=== PATIENT | male | born 1965 | race Caucasian/White ===

== ENCOUNTER 2016-08-02 10:42 | Inpatient (IN) ==
--- NOTE | 2016-08-01 16:26 | Discharge Summary ---
<Faith Ruiz - Last Filed: 08/01/16 16:20> Date of Encounter: 08/01/16 - Discharge Diagnosis (1) Infection of prosthetic left knee joint Priority: Primary Status: Acute Qualifiers: Encounter type: initial encounter Qualified Code(s): T84.54XA - Infection and inflammatory reaction due to internal left knee prosthesis, initial encounter (2) Coronary artery disease Priority: Secondary Status: Chronic Qualifiers: Coronary Disease-Associated Artery/Lesion type: unspecified vessel or lesion type [place] vs. transplanted heart: unspecified whether [place] or transplanted heart Associated angina: angina presence unspecified Qualified Code(s): I25.10 - Atherosclerotic heart disease of [place] coronary artery without angina pectoris (3) Tobacco use Priority: Secondary Status: Chronic (4) COPD (chronic obstructive pulmonary disease) Priority: Secondary Status: Chronic Qualifiers: COPD type: unspecified COPD (5) Atrial fib/flutter, transient Priority: Secondary Status: Chronic - Discharge Medications Prescriptions: Vancomycin HCl in Dextrose 5 % [Vancomycin 1.5 Gram/250 ml-D5w] 1.5 gm IV Q12H 42 Days Home Medications: Clopidogrel [Plavix] 75 mg PO DAILY 11/13/14 [History] Atorvastatin [Lipitor] 40 mg PO HS #90 tablet 11/16/14 [Rx] Cyclobenzaprine [Flexeril] 10 mg PO BID PRN 12/19/14 [History] FLUoxetine HCl [Prozac] 20 mg PO DAILY 12/19/14 [History] Folic Acid 1 mg PO DAILY 12/19/14 [History] Metoprolol [Lopressor] 50 mg PO BID 12/19/14 [History] Quetiapine Fumarate [Seroquel] 300 mg PO HS 12/19/14 [History] Gabapentin [Neurontin] 800 mg PO TID 03/15/15 [History] lamoTRIgine [Lamictal] 200 mg PO HS tablet 04/21/15 [Rx] [place] Carbonate 300 mg PO HS 06/15/15 [History] DULoxetine [Cymbalta] 60 mg PO DAILY 08/08/15 [History] Furosemide [Lasix] 20 mg PO DAILY 08/23/15 [History] Potassium Chloride [K-Tab ER] 20 meq PO DAILY 08/23/15 [History] Tiotropium [place] [Spiriva] 18 mcg PO DAILY 08/23/15 [History] ALPRAZolam [Xanax 0.5 MG Tablet] 0.5 mg PO Q6HR PRN 10/25/15 [History] Albuterol Sulfate [Ventolin Hfa] 2 puff IH Q4H PRN 04/23/16 [History] Docusate Sodium [Move It Along] 100 mg PO BID PRN 04/23/16 [History] Fluticasone/Vilanterol [Breo Ellipta 100-25 Mcg INH] 1 each IH HS 04/23/16 [ History] Meloxicam 15 mg PO DAILY 04/23/16 [History] Aspirin Enteric Coated [Aspirin EC] 325 mg PO DAILY #21 tablet. 08/01/16 [Rx] OxyCODONE Immed Rel [Roxicodone 5 MG] 2 mg PO Q6HR PRN #40 tablet 08/01/16 [Rx] Acetaminophen [Tylenol] 500 mg PO Q6HR PRN 08/02/16 [History] Aspirin [Lo-Dose Aspirin EC] 81 mg PO DAILY 08/02/16 [History] Benzonatate [Tessalon] 100 mg PO TID PRN 08/02/16 [History] FentaNYL PATCH [Duragesic] 25 mcg TD Q72H 08/02/16 [History] Guaifenesin [Guaifenesin ER] 600 mg PO Q12H PRN 08/02/16 [History] MOM Conc [MILK OF MAGNESIA conc] 30 ml PO DAILY PRN 08/02/16 [History] Menthol [Biofreeze] 1 appl TP BID PRN MDD apply to shoulders 08/02/16 [History] Nitroglycerin [Nitrostat] 0.4 mg SL Q5M PRN 08/02/16 [History] OxyCODONE/APAP 5/325 [Percocet 5/325 MG] 1 each PO Q6HR PRN 08/02/16 [History] Vancomycin HCl in Dextrose 5 % [Vancomycin 1.5 Gram/250 ml-D5w] 1.5 gm IV Q12H 42 Days 08/04/16 [Rx] Allergies/Adverse Reactions: Allergies simvastatin Allergy (Verified 08/02/16 12:16) See Comments chest pain Primary care physician: Sandro Ying MD - Patient Status Disposition: Transfer Inpatient Rehab Fac Condition: Good - Discharge Instructions Follow Up With: Sandro Ying MD [Primary Care Provider] - - Hospital Course Hospital course: Mr. Timmons is a 50 year old male - Time Spent with Patient Total time spent providing and/or coordinating discharge services: <Albert Thapa Rafael - Last Filed: 08/04/16 07:51> Date of Encounter: 08/04/16 Time of Encounter: 07:49 - Discharge Diagnosis (1) Coronary artery disease Priority: Secondary Status: Chronic Qualifiers: Coronary Disease-Associated Artery/Lesion type: unspecified vessel or lesion type [place] vs. transplanted heart: unspecified whether [place] or transplanted heart Associated angina: angina presence unspecified Qualified Code(s): I25.10 - Atherosclerotic heart disease of [place] coronary artery without angina pectoris (2) Tobacco use Priority: Secondary Status: Chronic (3) COPD (chronic obstructive pulmonary disease) Priority: Secondary Status: Chronic Qualifiers: COPD type: unspecified COPD Qualified Code(s): J44.9 - Chronic obstructive pulmonary disease, unspecified (4) Atrial fib/flutter, transient Priority: Secondary Status: Chronic (5) Infection of prosthetic left knee joint Priority: Primary Status: Acute Qualifiers: Encounter type: subsequent encounter Qualified Code(s): T84.54XD - Infection and inflammatory reaction due to internal left knee prosthesis, subsequent encounter (6) Congestive heart failure of unknown etiology Priority: Secondary Status: Chronic Primary care physician: Sandro Ying MD - Patient Status Functional capacity at discharge: uses cane/walker Overall status at discharge: patient is progressing back to baseline - Hospital Course Hospital course: Mr. Timmons is a 50 year old male The patient had an uneventful postoperative course. They received antibiotics and physical therapy and were discharged in stable condition. There will follow -up in the office in 2 weeks. Cultures negative to date and will continue on IV antibiotics for 6 weeks. Patient had a PICC line placed aspirin DVT prophylaxis. - Time Spent with Patient Total time spent providing and/or coordinating discharge services:
[2016-08-02] MEDS ORDERED: Albuterol 2.5 MG/3 ML NEBULIZER IH ONE (10:57)
[2016-08-02] MEDS ORDERED: Vancomycin 1,250 MG in D5% in Water 250 ML IVPB ONE (10:57)
[2016-08-02] MEDS ORDERED: Ringers Solution, Lactated 1,000 ML IVC SCH ×2 (11:00→16:39)
--- NOTE | 2016-08-02 11:02 | Anesthesia Evaluation PreOp ---
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 THR, Left TKR) Alcohol Use: none Drug use: none Medications and Allergies Clopidogrel [Plavix] 75 mg PO DAILY 11/13/14 [History] Atorvastatin [Lipitor] 40 mg PO HS #90 tablet 11/16/14 [Rx] Cyclobenzaprine [Flexeril] 10 mg PO BID 12/19/14 [History] FLUoxetine HCl [Prozac] 20 mg PO DAILY 12/19/14 [History] Folic Acid 1 mg PO DAILY 12/19/14 [History] Metoprolol [Lopressor] 50 mg PO BID 12/19/14 [History] Quetiapine Fumarate [Seroquel] 300 mg PO HS 12/19/14 [History] Gabapentin [Neurontin] 800 mg PO TID 03/15/15 [History] lamoTRIgine [Lamictal] 200 mg PO HS tablet 04/21/15 [Rx] [place] Carbonate 300 mg PO HS 06/15/15 [History] DULoxetine [Cymbalta] 60 mg PO DAILY 08/08/15 [History] Furosemide [Lasix] 20 mg PO DAILY 08/23/15 [History] Potassium Chloride [K-Tab ER] 20 meq PO DAILY 08/23/15 [History] Tiotropium [place] [Spiriva] 18 mcg PO DAILY 08/23/15 [History] ALPRAZolam [Xanax 0.5 MG Tablet] 0.5 mg PO Q6HR PRN 10/25/15 [History] Albuterol Sulfate [Ventolin Hfa] 1 puff IH Q4H PRN 04/23/16 [History] Clopidogrel [Plavix] 75 mg PO DAILY 04/23/16 [History] Docusate Sodium [Move It Along] 100 mg PO BID 04/23/16 [History] Fluticasone/Vilanterol [Breo Ellipta 100-25 Mcg INH] 1 each IH DAILY 04/23/16 [ History] Meloxicam 15 mg PO DAILY 04/23/16 [History] Aspirin Enteric Coated [Aspirin EC] 325 mg PO DAILY #21 tablet. 08/01/16 [Rx] OxyCODONE Immed Rel [Roxicodone 5 MG] 2 mg PO Q6HR PRN #40 tablet 08/01/16 [Rx] Allergies simvastatin Allergy (Verified 06/27/16 14:18) See Comments chest pain - Meds/Allergy Pre-op Review Medications Reviewed: Yes Allergies Reviewed: Yes Beta Blockers on Current Med List: Yes If Beta Blockers taken, Date/Time (Last Dose taken): Held for low BP and HR Anesthesia Results - Labs Laboratory Tests 07/28/16 07/28/16 07/28/16 14:47 14:47 14:47 WBC 13.3 H Hgb 13.6 Hct 41.1 Plt Count 238 INR 1.2 Sodium 138 Potassium 4.6 H Chloride 103 Carbon Dioxide 27 BUN 17 Creatinine 0.93 ECHO 11/14/14 EF-50% Mild LV dysfunction Mod Pulm HTN No sig. Valvular dx - Imaging EKG: image reviewed (SR) Anesthesia Exam Height: 5'7'' Weight: 200# NPO (# of Hours): > 8 hrs Pain Scale: 0 Pain Scale Used: Numeric (1 - 10) - HEENT Pupil (Motor): Pupils equal, EOMI Mallampati: III Teeth: Edentulous Denture Type: Upper: Complete, Lower: Complete Oral Opening: Greater than 3 - EMERGENCY VETERINARIAN LOC: Oriented EMERGENCY VETERINARIAN Motor: Normal RUE, Normal LUE, Normal RLE, Normal LLE, Normal Face EMERGENCY VETERINARIAN Sensory: Normal: RUE, LUE, RLE, LLE, Face - Cardiac Rhythm: Regular Murmur: None JVD: No Carotid Bruit: No - Pulmonary Breath Sounds: bilateral Clear Respiratory Effort: Symmetrical Anesthesia Assess/Plan ASA Score: 3 Modified Marcela Scale for Level of Consciousness: Cooperative, oriented, and tranquil Anesthetic Plan: General, Regional Autologous Blood: Yes Monitoring Plan: Standard Monitors Recovery Plan: PACU
--- NOTE | 2016-08-02 11:27 | History & Physical Report ---
Date of Encounter: 08/02/16 Time of Encounter: 11:27 24 Hour HP Update - Instructions Instructions: If the History and Physical is less than 30 days old and was completed prior to A.M. admission and or procedure and has NOT been updated on calendar day of procedure please complete this update prior to performing procedure. - Update Patient reports changes in Medical Condition: No Changes in examination, assessment, or condition: No Changes in Medication: No Preop tests/diagnostics Reviewed: Yes Surgery Remains Indicated: Yes Consent for Planned Operative Procedure(s) Verified: Yes - Pre-Operative Checklist Preoperative Checklist Indicated: No Prophylactic Antibiotic Ordered: Yes Is VTE Prophylaxis Indicated?: Yes
[2016-08-02] MEDS ORDERED: *HR* Midazolam HCl 2 MG/2 ML VIAL ONE (12:42)
[2016-08-02] MEDS ORDERED: *HR* FentaNYL (PF) 100 MCG/2 ML VIAL ONE (12:42)
[2016-08-02] MEDS ORDERED: *HR* Propofol 200 MG/20 ML VIAL IVP ONE (12:43)
[2016-08-02] MEDS ORDERED: Lidocaine -MPF 2% 2 ML VIAL ONE (12:44)
[2016-08-02] MEDS ORDERED: Bupivacaine/Clonidine Syringe 1 EACH SYRINGE ONE (12:44)
[2016-08-02] MEDS ORDERED: ROPIVACAINE HCL/PF 0.5% 30 ML VIAL ONE (12:45)
[2016-08-02] MEDS ORDERED: *HR* Succinylcholine 200 MG/10 ML VIAL IVP ONE (12:45)
--- NOTE | 2016-08-02 13:12 | Anesthesia Procedures ---
Date of Encounter: 08/02/16 Time of Encounter: 13:09 Procedures: Anesthesia - Nerve Block Procedure Date: 08/02/16 Time: 13:09 Allergies/Adv Reactions: simastatin Pre-op Diagnosis: L knee arthritis Surgical Procedure: L TKA Checklist: Correct Patient Identifier Correct side: Left Blood Thinner: No Monitor Applied: EKG, BP, Pulse Oximetry Supplemental Oxygen via Nasal Cannula (L/min): 3 Sedation: Versed (mg): 2 Indication: Post Op Analgesia Pre-op Neuro Deficits: No Block Type: Femoral, Other (IPAK) Catheter placed: No Sterile Technique: Yes Ultrasound used: Yes Anatomy identified: Yes Visual spread of Local: Yes Neuro Stimulation: Yes Nerve Stimulator Range: 0.2 - 0.4 mA Blood on Needle Aspiration: No Smooth Injection of Local: Yes Pain with Injection of Local: No Prep: Chlorhexadine Needle: 22 x 50 mm Stimuplex (fem), 21 x 100 mm Stimuplex (IPAK) Local: 0.25% Bupivicaine w/Clonidine 20 mcg/cc (20 cc IPAK), Ropivacaine (30cc FEM) Volume (cc): 30+20 Number of Attempts: 1 Complications: None/effective block Vitals: 113/64 60 18 98% Comments: aseptic, tolerated well
[2016-08-02] MEDS ORDERED: Lidocaine -MPF 4% 5 ML AMPUL ONE (13:13)
[2016-08-02] MEDS ORDERED: EPHEDrine 50 MG/ML VIAL ONE (13:50)
[2016-08-02] MEDS ORDERED: Dexamethasone 4 MG/ML VIAL ONE (13:53)
[2016-08-02] MEDS ORDERED: Ondansetron 4 MG/2 ML VIAL ONE (13:53)
[2016-08-02] MEDS ORDERED: *HR* HYDROmorphone (PF) 1 MG/ML SYRINGE IVP PRN (14:24)
[2016-08-02] MEDS ORDERED: *HR* Promethazine 25 MG/ML VIAL IVP PRN (14:24)
--- NOTE | 2016-08-02 14:47 | Orthopedic Operative Note ---
Date of procedure: 08/02/16 Pre-op diagnosis: Infected left total knee Post-op diagnosis: same Procedure: Procedure: Left knee removal total knee, removal of hardware tibia and femur, placement of articulating spacer. Estimated blood loss: 800 cc Hardware: Arthrex 4 femur 18 PS Nandini Exam under anesthesia: 40 degree flexion contracture and flexion to 90 degrees swelling no erythema well-healed incision Procedural Notes: No gross pus within the joint purulent material found medial aspect outside the capsule. Grossly loose femur. Operative procedure: The patient was brought to the operating room and placed on the operating room table. The operative extremity was prepped and draped in sterile surgical fashion. The patient received IV antibiotics prior to skin incision. A standard midline incision was made centered over the patella through the old incision, superiorly and elliptical portion was used to remove with the incision had spread well-healing the incision was well-healed. The incision was made through the skin and subcutaneous tissue. A medial parapatellar tendon approach was performed. Care was taken to preserve tissue along the medial aspect of the patella. And to protect the patella tendon. The deep MCL was released off the medial tibia. The infra patella fat pad was excised. Fluid within the joint appeared to be consistent with normal joint fluid and Cultures were obtained, patient purulent material extracapsular cultures were obtained. An extensive synovectomy was performed. The knee was brought into flexion the Nandini was removed. Femoral component was grossly loose and removed with very little effort. Attention was then turned to the tibial component. The tibial component was well fixed was removed with an oscillating saw and osteotomes without significant bone loss. Patient's patella was transected below the patellar component. Nandini Lugs were removed with the drill. The patient came to full extension but had bone bone contact at this point. The femur was recut in 6 degrees of valgus. And prepared for a 4 femur. The tibia was recut at 4 mm below the previous cut line. This was both done intramedullary. From the femur with a interference screw was removed from the tibia a staple was removed. Following these recuts a 4 femur fit with an 18 Nandini to full extension. The knee sat for 2 minutes with a Betadine saline solution. It was irrigated out with 2 L of pulse irrigation. The articulating spaces were cemented in place after the wound was irrigated with bactisure. The knee was held in full extension while the cement hardened. The extensor mechanism was closed with a running #2 PDS suture. The deep tissue was irrigated and closed deep with #1 PDS suture superficially with 0 PDS suture. The skin was closed with kodak. The patient was placed in a sterile dressing and postoperative brace. The patient was extubated and transferred to recovery room in stable condition. Anesthesia: GETA Surgeon: Albert Thapa [employer] Chief Scientist: Faith Ruiz Condition: stable Disposition: PACU
--- NOTE | 2016-08-02 15:55 | Anesthesia Evaluation Post Op ---
Date of Encounter: 08/02/16 Time of Encounter: 15:54 - Vital Signs Vital Signs: Selected Entries 08/02/16 15:23 08/02/16 15:43 Temperature 97.0 F L Pulse Rate 76 Respiratory Rate 18 Blood Pressure 100/57 O2 Sat by Pulse Oximetry 95 Oxygen Flow Rate (LPM) 2 - Lungs Lungs: Clear Ascult./Percussion - Airway Airway: Non-obstructed - Cardiovascular Regular Rate - Mental Status Mental Status: Alert & Oriented, Answers Appropriately - Pain Pain Scale: 5 Pain Scale used: Numeric (1 - 10) - Nausea Vomiting Nausea Vomiting: Not Present - Hydration Hydration: Ice chips, Has not voided - Discharge PostOp Status: Transfer Patient to floor
[2016-08-02 15:59] LABS: Hematocrit 36.9 % (37.5-50.1); Hemoglobin 12.2 g/dL (12.9-16.9)
[2016-08-02] MEDS ORDERED: *HR* FentaNYL PATCH 25 MCG PATCH TD SCH (16:39)
[2016-08-02] MEDS ORDERED: Ondansetron 4 MG/2 ML VIAL IVP PRN (16:39)
[2016-08-02] MEDS ORDERED: Temazepam 15 MG CAPSULE PO PRN (16:39)
[2016-08-02] MEDS ORDERED: Nitroglycerin 0.4 MG TAB.SUBL SL PRN (16:39)
[2016-08-02] MEDS ORDERED: Sennosides 8.6 MG TABLET PO PRN (16:39)
[2016-08-02] MEDS ORDERED: Benzonatate 100 MG CAPSULE PO PRN (16:39)
[2016-08-02] MEDS ORDERED: *HR* OxyCODONE Immed Rel 5 MG TABLET PO PRN (16:39)
[2016-08-02] MEDS ORDERED: Naloxone 0.4 MG/ML INJ IVP PRN (16:39)
[2016-08-02] MEDS ORDERED: MOM Conc 10 ML UD.LIQ PO PRN ×2 (16:39)
[2016-08-02] MEDS ORDERED: ALPRAZolam 0.5 MG TABLET PO PRN (16:39)
[2016-08-02] MEDS: *HR* Enoxaparin 30 MG/0.3 ML SYRINGE SQ SCH (16:55)
[2016-08-02] MEDS: *HR* HYDROmorphone (PF) 1 MG/ML SYRINGE IVP PRN (16:55)
[2016-08-02] MEDS: Gabapentin 400 MG CAPSULE PO SCH ×2 (17:58→20:51)
[2016-08-02] MEDS ORDERED: *HR* Enoxaparin 30 MG/0.3 ML SYRINGE SQ SCH (18:00)
[2016-08-02] MEDS: *HR* OxyCODONE Immed Rel 5 MG TABLET PO PRN (19:45)
[2016-08-02] MEDS: Lithium Carbonate 300 MG CAPSULE PO SCH (20:51)
[2016-08-02] MEDS: lamoTRIgine 100 MG TABLET PO SCH (20:51)
[2016-08-02] MEDS: (Fluticasone/Vilanterol [Breo Ellipta 100-25 Mcg Inh]) IH SCH (23:30)
[2016-08-03] MEDS: Vancomycin 1,500 MG in D5% in Water 250 ML IVPB SCH ×3 (01:17→23:53)
[2016-08-03] MEDS: *HR* OxyCODONE Immed Rel 5 MG TABLET PO PRN ×6 (01:20→23:50)
[2016-08-03] MEDS ORDERED: Vancomycin 1,000 MG VIAL IVPB SCH (01:30)
[2016-08-03 05:51] LABS: Hematocrit 31.5 % (37.5-50.1)
[2016-08-03 05:52] LABS: Hemoglobin 10.3 g/dL (12.9-16.9)
[2016-08-03] MEDS: *HR* Enoxaparin 30 MG/0.3 ML SYRINGE SQ SCH ×2 (06:03→17:08)
[2016-08-03 06:09] LABS: BUN/Creatinine Ratio 18 (6-26); Blood Urea Nitrogen 19 mg/dL (8-26); Calcium 8.9 mg/dL (8.6-10.8); Carbon Dioxide 27 mEq/L (19-29); Chloride 102 mEq/L (98-109); Glucose 123 mg/dL (70-99); Osmolality,Calculated 286 (280-300); Potassium 4.9 mEq/L (3.5-4.5); Sodium 136 mEq/L (136-145); eGFR For African Americans > 60 (> 60); eGFR For Non-African Americans > 60 (> 60)
[2016-08-03] MEDS ORDERED: Lidocaine -MPF 1% 5 ML AMPUL INFILT ONE (06:26)
--- NOTE | 2016-08-03 08:10 | Orthopedics Progress Note ---
Date of Encounter: 08/03/16 Time of Encounter: 08:10 - Assessment and Plan (1) Coronary artery disease Current Visit: No Status: Chronic Qualifiers: Coronary Disease-Associated Artery/Lesion type: unspecified vessel or lesion type [place] vs. transplanted heart: unspecified whether [place] or transplanted heart Associated angina: angina presence unspecified Qualified Code(s): I25.10 - Atherosclerotic heart disease of [place] coronary artery without angina pectoris (2) Tobacco use Current Visit: No Status: Chronic (3) COPD (chronic obstructive pulmonary disease) Current Visit: No Status: Chronic Qualifiers: COPD type: unspecified COPD Qualified Code(s): J44.9 - Chronic obstructive pulmonary disease, unspecified (4) Atrial fib/flutter, transient Current Visit: No Status: Chronic (5) Infection of prosthetic left knee joint Current Visit: Yes Status: Acute Qualifiers: Encounter type: subsequent encounter Qualified Code(s): T84.54XD - Infection and inflammatory reaction due to internal left knee prosthesis, subsequent encounter Subjective Interval history: Patient was seen this morning doing well without complaints. Afebrile vital signs stable. Operative extremity: Neurovascularly intact Dressing clean dry and intact Calves nontender Assessment and plan: Continue with postoperative care Hematocrit 31 Gram stain negative for bacteria cultures pending blood, PICC line required Objective Vital signs: Vital Signs Temp Pulse Resp BP Pulse Ox 08/03/16 06:31 98.7 F 83 20 114/66 93 08/03/16 05:20 98.4 F 77 19 96/58 96 08/03/16 00:47 98 F 83 20 102/64 93 08/02/16 19:48 97.8 F 81 16 106/70 95 08/02/16 19:30 97.8 F 81 16 106/70 95 08/02/16 18:30 97.8 F 77 18 109/69 95 08/02/16 17:20 97.7 F 78 16 101/53 96 08/02/16 17:07 95 08/02/16 17:06 88 08/02/16 16:34 95 08/02/16 16:25 97.8 F 80 12 100/66 95 08/02/16 16:03 97.9 F 75 16 96/60 93 08/02/16 15:53 97.9 F 74 16 95/65 94 08/02/16 15:43 76 18 100/57 95 05/31/17 15:33 71 18 102/60 98 08/02/16 15:23 97.0 F L 82 20 103/65 99 08/02/16 13:00 61 18 106/67 99 08/02/16 12:45 61 18 113/66 99 08/02/16 10:59 97.8 F 60 18 84/42 95 Intake and Output 08/02/16 08/03/16 08/03/16 23:59 07:59 15:59 Intake Total 400 / 400 450 / 450 Output Total 450 / 450 Balance 400 / 400 0 / 0 Intake: IV Fluids 250 / 250 250 / 250 Vancocin 1,500 MG In 250 / 250 250 / 250 Dextrose 5% 250 ML @ 166. 67 mls/hr IVPB Q12H [facility] Rx#:[id number] Oral 150 / 150 200 / 200 Output: Urine 450 / 450 - Labs CBC & BMP: 08/03/16 05:14 08/03/16 05:14 Labs: Abnormal lab results Hgb 10.3 g/dL (12.9-16.9) L D 08/03/16 05:14 Hct 31.5 % (37.5-50.1) L 08/03/16 05:14 Potassium 4.9 mEq/L (3.5-4.5) H 08/03/16 05:14 Glucose 123 mg/dL (70-99) H 08/03/16 05:14 - VTE Documentation of Mechanical Device: Venous foot pump, device Consult Discharge Plan - Plan Referrals: Sandro Ying MD [Primary Care Provider] -
[2016-08-03] MEDS: Tiotropium 18 MCG inhalation IH SCH (08:13)
[2016-08-03] MEDS: Folic Acid 1 MG TABLET PO SCH (08:18)
[2016-08-03] MEDS: Gabapentin 400 MG CAPSULE PO SCH ×3 (08:18→21:37)
[2016-08-03] MEDS: FLUoxetine 20 MG CAPSULE PO SCH (08:18)
[2016-08-03] MEDS: Furosemide 20 MG TABLET PO SCH (08:18)
[2016-08-03] MEDS: Aspirin Enteric Coated 81 MG Tablet PO SCH (08:19)
[2016-08-03] MEDS: *HR* HYDROmorphone (PF) 1 MG/ML SYRINGE IVP PRN ×3 (11:17→21:41)
[2016-08-03] MEDS: lamoTRIgine 100 MG TABLET PO SCH (21:37)
[2016-08-03] MEDS: Lithium Carbonate 300 MG CAPSULE PO SCH (21:38)
[2016-08-03] MEDS: (Fluticasone/Vilanterol [Breo Ellipta 100-25 Mcg Inh]) IH SCH (21:38)
[2016-08-04] MEDS: *HR* HYDROmorphone (PF) 1 MG/ML SYRINGE IVP PRN ×2 (01:26→09:06)
--- NOTE | 2016-08-04 06:29 | Orthopedics Progress Note ---
Date of Encounter: 08/04/16 Time of Encounter: 06:28 - Assessment and Plan (1) Coronary artery disease Current Visit: No Status: Chronic Qualifiers: Coronary Disease-Associated Artery/Lesion type: unspecified vessel or lesion type [place] vs. transplanted heart: unspecified whether [place] or transplanted heart Associated angina: angina presence unspecified Qualified Code(s): I25.10 - Atherosclerotic heart disease of [place] coronary artery without angina pectoris (2) Tobacco use Current Visit: No Status: Chronic (3) COPD (chronic obstructive pulmonary disease) Current Visit: No Status: Chronic Qualifiers: COPD type: unspecified COPD Qualified Code(s): J44.9 - Chronic obstructive pulmonary disease, unspecified (4) Atrial fib/flutter, transient Current Visit: No Status: Chronic (5) Infection of prosthetic left knee joint Current Visit: Yes Status: Acute Qualifiers: Encounter type: subsequent encounter Qualified Code(s): T84.54XD - Infection and inflammatory reaction due to internal left knee prosthesis, subsequent encounter (6) Congestive heart failure of unknown etiology Current Visit: Yes Status: Chronic Subjective Interval history: Patient was seen this morning doing well without complaints. Afebrile vital signs stable. Operative extremity: Neurovascularly intact Dressing clean dry and intact Calves nontender Assessment and plan: Continue with postoperative care Cultures negative discharged today IV antibiotics. Objective Vital signs: Vital Signs Temp Pulse Resp BP Pulse Ox 08/04/16 03:59 98.1 F 108 17 125/69 93 08/03/16 23:34 98.4 F 99 17 148/73 94 08/03/16 17:53 99.0 F 98 20 142/75 93 08/03/16 14:14 99.2 F 92 20 120/68 93 08/03/16 11:12 98.8 F 81 20 137/84 93 08/03/16 08:14 18 93 08/03/16 06:31 98.7 F 83 20 114/66 93 Intake and Output 08/03/16 08/03/16 08/04/16 15:59 23:59 07:59 Intake Total 120 / 120 1260 / 1260 250 / 250 Output Total 500 / 500 350 / 350 Balance -380 / -380 910 / 910 250 / 250 Intake: IV Fluids 250 / 250 250 / 250 Vancocin 1,500 MG In 250 / 250 250 / 250 Dextrose 5% 250 ML @ 166. 67 mls/hr IVPB Q12H [facility] Rx#:[id number] Oral 120 / 120 1010 / 1010 Output: Urine 500 / 500 350 / 350 Other: Meal Breakfast Dinner Percent of Meal Consumed 50% 10% - Labs CBC & BMP: 08/03/16 05:14 08/03/16 05:14 Labs: Abnormal lab results Hgb 10.3 g/dL (12.9-16.9) L D 08/03/16 05:14 Hct 31.5 % (37.5-50.1) L 08/03/16 05:14 Potassium 4.9 mEq/L (3.5-4.5) H 08/03/16 05:14 Glucose 123 mg/dL (70-99) H 08/03/16 05:14 - VTE Documentation of Mechanical Device: Venous foot pump, device Consult Discharge Plan - Plan Referrals: Sandro Ying MD [Primary Care Provider] -
[2016-08-04] MEDS: *HR* Enoxaparin 30 MG/0.3 ML SYRINGE SQ SCH (07:09)
[2016-08-04] MEDS: *HR* OxyCODONE Immed Rel 5 MG TABLET PO PRN ×3 (07:09→15:04)
[2016-08-04 08:04] LABS: BUN/Creatinine Ratio 16 (6-26); Blood Urea Nitrogen 15 mg/dL (8-26); Calcium 8.8 mg/dL (8.6-10.8); Carbon Dioxide 26 mEq/L (19-29); Chloride 102 mEq/L (98-109); Glucose 118 mg/dL (70-99); Osmolality,Calculated 284 (280-300); Sodium 136 mEq/L (136-145); eGFR For African Americans > 60 (> 60); eGFR For Non-African Americans > 60 (> 60)
[2016-08-04 08:05] LABS: Potassium 3.4 mEq/L (3.5-4.5)
[2016-08-04 08:07] LABS: Hemoglobin 8.3 g/dL (12.9-16.9)
[2016-08-04] MEDS: Tiotropium 18 MCG inhalation IH SCH (08:41)
[2016-08-04] MEDS: Folic Acid 1 MG TABLET PO SCH (09:02)
[2016-08-04] MEDS: Aspirin Enteric Coated 81 MG Tablet PO SCH (09:02)
[2016-08-04] MEDS: Gabapentin 400 MG CAPSULE PO SCH ×2 (09:02→15:05)
[2016-08-04] MEDS: Furosemide 20 MG TABLET PO SCH (09:03)
[2016-08-04] MEDS: FLUoxetine 20 MG CAPSULE PO SCH (09:03)
[2016-08-04 11:10] VITALS: BP 112/61
[2016-08-04] MEDS: Vancomycin 1,500 MG in D5% in Water 250 ML IVPB SCH (12:47)
[2016-08-04] MEDS ORDERED: Aminoglycoside Consult 1 EACH MC ONE (15:05)
== END 2016-08-04 15:06 | DRG 302 ==
LOC: SAMDAY 10:42 → 3NENU 16:23
PROVIDERS: ADMIT Orthopaedic Surgery; ATTEND Orthopaedic Surgery

== ENCOUNTER 2016-09-25 13:57 | Inpatient (IN) ==
--- NOTE | 2016-09-24 22:40 | Discharge Summary ---
<Faith Ruiz - Last Filed: 09/24/16 22:38> Date of Encounter: 09/24/16 - Discharge Diagnosis (1) Status post revision of total replacement of left knee Priority: Primary Status: Acute (2) History of infection of total joint prosthesis of knee Priority: Primary Status: Acute (3) Coronary artery disease Priority: Secondary Status: Chronic Qualifiers: Coronary Disease-Associated Artery/Lesion type: [place] artery [place] vs. transplanted heart: [place] heart Associated angina: without angina Qualified Code(s): I25.10 - Atherosclerotic heart disease of [place] coronary artery without angina pectoris (4) Tobacco use Priority: Secondary Status: Chronic (5) COPD (chronic obstructive pulmonary disease) Priority: Primary Status: Chronic Qualifiers: COPD type: chronic bronchitis (6) Atrial fib/flutter, transient Priority: Secondary Status: Chronic (7) Congestive heart failure Priority: Secondary Status: Chronic Qualifiers: Congestive heart failure type: unspecified congestive heart failure type Congestive heart failure chronicity: chronic Qualified Code(s): I50.9 - Heart failure, unspecified (8) Chronic pain Priority: Secondary Status: Acute Qualifiers: Chronic pain type: other chronic pain Qualified Code(s): G89.29 - Other chronic pain (9) Obesity Priority: Secondary Status: Acute Qualifiers: Obesity type: due to excess calories Obesity classification: unspecified obesity classification Serious obesity comorbidity presence: without serious comorbidity Qualified Code(s): E66.09 - Other obesity due to excess calories - Discharge Medications Home Medications: Clopidogrel [Plavix] 75 mg PO DAILY 11/13/14 [History] Atorvastatin [Lipitor] 40 mg PO HS #90 tablet 11/16/14 [Rx] Cyclobenzaprine [Flexeril] 10 mg PO BID PRN 12/19/14 [History] FLUoxetine HCl [Prozac] 20 mg PO DAILY 12/19/14 [History] Folic Acid 1 mg PO DAILY 12/19/14 [History] Metoprolol [Lopressor] 50 mg PO BID 12/19/14 [History] Quetiapine Fumarate [Seroquel] 300 mg PO HS 12/19/14 [History] Gabapentin [Neurontin] 800 mg PO TID 03/15/15 [History] lamoTRIgine [Lamictal] 200 mg PO HS tablet 04/21/15 [Rx] [place] Carbonate 300 mg PO HS 06/15/15 [History] DULoxetine [Cymbalta] 60 mg PO DAILY 08/08/15 [History] Furosemide [Lasix] 20 mg PO DAILY 08/23/15 [History] Potassium Chloride [K-Tab ER] 20 meq PO DAILY 08/23/15 [History] Tiotropium [place] [Spiriva] 18 mcg PO DAILY 08/23/15 [History] ALPRAZolam [Xanax 0.5 MG Tablet] 0.5 mg PO Q6HR PRN 10/25/15 [History] Albuterol Sulfate [Ventolin Hfa] 2 puff IH Q4H PRN 04/23/16 [History] Docusate Sodium [Move It Along] 100 mg PO BID PRN 04/23/16 [History] Fluticasone/Vilanterol [Breo Ellipta 100-25 Mcg INH] 1 each IH HS 04/23/16 [ History] Benzonatate [Tessalon] 100 mg PO TID PRN 08/02/16 [History] FentaNYL PATCH [Duragesic] 25 mcg TD Q72H 08/02/16 [History] Guaifenesin [Guaifenesin ER] 600 mg PO Q12H PRN 08/02/16 [History] MOM Conc [MILK OF MAGNES[place] conc] 30 ml PO DAILY PRN 08/02/16 [History] Menthol [Biofreeze] 1 appl TP BID PRN MDD apply to shoulders 08/02/16 [History] Nitroglycerin [Nitrostat] 0.4 mg SL Q5M PRN 08/02/16 [History] Aspirin Enteric Coated [Aspirin EC] 325 mg PO DAILY #21 tablet. 09/24/16 [Rx] OxyCODONE/APAP 5/325 [Percocet 5/325 MG] 1 - 2 each PO Q6HR PRN #40 09/24/16 [ Rx] Acetaminophen [Tylenol] 500 mg PO Q6HR PRN 09/25/16 [History] Albuterol Sulfate [Ventolin Hfa] 2 puff IH Q4H PRN 09/25/16 [History] Aspirin 325 mg PO DAILY 09/25/16 [History] Fluticasone/Vilanterol [Breo Ellipta 100-25 Mcg INH] 1 each IH HS 09/25/16 [ History] Lactobacillus Acidophilus [Acidophilus] 1 each PO BID 09/25/16 [History] Oxycodone HCl [Oxaydo] 10 mg PO Q6H PRN 09/25/16 [History] Allergies/Adverse Reactions: Allergies simvastatin Adverse Reaction (Verified 09/25/16 14:50) See Comments chest pain Primary care physician: Sandro Ying MD - Patient Status Disposition: Transfer Inpatient Rehab Fac Condition: Good - Discharge Instructions Follow Up With: Sandro Ying MD [Primary Care Provider] - - Hospital Course Hospital course: Mr. Timmons is a 51 year old male - Time Spent with Patient Total time spent providing and/or coordinating discharge services: <Albert Thapa Rafael - Last Filed: 09/27/16 08:21> Date of Encounter: 09/27/16 Time of Encounter: 08:20 - Discharge Diagnosis (1) Coronary artery disease Priority: Secondary Status: Chronic Qualifiers: Coronary Disease-Associated Artery/Lesion type: [place] artery [place] vs. 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 Qualifiers: Encounter type: subsequent encounter Qualified Code(s): T84.54XD - Infection and inflammatory reaction due to internal left knee prosthesis, subsequent encounter (7) Congestive heart failure Priority: Secondary Status: Chronic Qualifiers: Congestive heart failure type: unspecified congestive heart failure type Congestive heart failure chronicity: chronic Qualified Code(s): I50.9 - Heart failure, unspecified (8) Status post revision of total replacement of left knee Priority: Primary Status: Acute (9) History of infection of total joint prosthesis of knee Priority: Primary Status: Acute (10) Chronic pain Priority: Secondary Status: Acute Qualifiers: Chronic pain type: other chronic pain Qualified Code(s): G89.29 - Other chronic pain (11) Obesity Priority: Secondary Status: Acute Qualifiers: Obesity type: due to excess calories Obesity classification: unspecified obesity classification Serious obesity comorbidity presence: without serious comorbidity Qualified Code(s): E66.09 - Other obesity due to excess calories (12) Acute blood loss anemia Priority: Primary Status: Acute Primary care physician: Sandro Ying MD - Patient Status Functional capacity at discharge: uses cane/walker Overall status at discharge: patient is progressing back to baseline - Hospital Course Hospital course: Mr. Timmons is a 51 year old male Hematocrit 24 transfused 2 units before discharge. Patient with revision left total knee. Cultures negative to date. Received antibiotics and physical therapy no knee motion until incision healed. - Time Spent with Patient Total time spent providing and/or coordinating discharge services:
--- NOTE | 2016-09-24 22:45 | Physician Discharge Referral ---
ExtendedCare Referral Info Transfer To: ECF Provider in Charge after Transfer: PCP Institutional Level of Care: Skilled - Diagnosis (1) Status post revision of total replacement of left knee Priority: Primary Status: Acute (2) History of infection of total joint prosthesis of knee Priority: Primary Status: Acute (3) Coronary artery disease Priority: Secondary Status: Chronic (4) Tobacco use Priority: Secondary Status: Chronic (5) COPD (chronic obstructive pulmonary disease) Priority: Secondary Status: Chronic (6) Atrial fib/flutter, transient Priority: Secondary Status: Chronic (7) Congestive heart failure Priority: Secondary Status: Chronic (8) Chronic pain Priority: Secondary Status: Acute (9) Obesity Priority: Secondary Status: Acute Expected Duration of Placement: Long-term Prognosis: Good Aware of Diagnosis: Patient Aware of Prognosis: Patient - Transfer Medications Home Medications: Clopidogrel [Plavix] 75 mg PO DAILY 11/13/14 [History] Atorvastatin [Lipitor] 40 mg PO HS #90 tablet 11/16/14 [Rx] Cyclobenzaprine [Flexeril] 10 mg PO BID PRN 12/19/14 [History] FLUoxetine HCl [Prozac] 20 mg PO DAILY 12/19/14 [History] Folic Acid 1 mg PO DAILY 12/19/14 [History] Metoprolol [Lopressor] 50 mg PO BID 12/19/14 [History] Quetiapine Fumarate [Seroquel] 300 mg PO HS 12/19/14 [History] Gabapentin [Neurontin] 800 mg PO TID 03/15/15 [History] lamoTRIgine [Lamictal] 200 mg PO HS tablet 04/21/15 [Rx] [place] Carbonate 300 mg PO HS 06/15/15 [History] DULoxetine [Cymbalta] 60 mg PO DAILY 08/08/15 [History] Furosemide [Lasix] 20 mg PO DAILY 08/23/15 [History] Potassium Chloride [K-Tab ER] 20 meq PO DAILY 08/23/15 [History] Tiotropium [place] [Spiriva] 18 mcg PO DAILY 08/23/15 [History] ALPRAZolam [Xanax 0.5 MG Tablet] 0.5 mg PO Q6HR PRN 10/25/15 [History] Albuterol Sulfate [Ventolin Hfa] 2 puff IH Q4H PRN 04/23/16 [History] Docusate Sodium [Move It Along] 100 mg PO BID PRN 04/23/16 [History] Fluticasone/Vilanterol [Breo Ellipta 100-25 Mcg INH] 1 each IH HS 04/23/16 [ History] Benzonatate [Tessalon] 100 mg PO TID PRN 08/02/16 [History] FentaNYL PATCH [Duragesic] 25 mcg TD Q72H 08/02/16 [History] Guaifenesin [Guaifenesin ER] 600 mg PO Q12H PRN 08/02/16 [History] MOM Conc [MILK OF [place]ES[place] conc] 30 ml PO DAILY PRN 08/02/16 [History] Menthol [Biofreeze] 1 appl TP BID PRN MDD apply to shoulders 08/02/16 [History] Nitroglycerin [Nitrostat] 0.4 mg SL Q5M PRN 08/02/16 [History] Aspirin Enteric Coated [Aspirin EC] 325 mg PO DAILY #21 tablet. 09/24/16 [Rx] OxyCODONE/APAP 5/325 [Percocet 5/325 MG] 1 - 2 each PO Q6HR PRN #40 09/24/16 [ Rx] Acetaminophen [Tylenol] 500 mg PO Q6HR PRN 09/25/16 [History] Albuterol Sulfate [Ventolin Hfa] 2 puff IH Q4H PRN 09/25/16 [History] Aspirin 325 mg PO DAILY 09/25/16 [History] Fluticasone/Vilanterol [Breo Ellipta 100-25 Mcg INH] 1 each IH HS 09/25/16 [ History] Lactobacillus Acidophilus [Acidophilus] 1 each PO BID 09/25/16 [History] Oxycodone HCl [Oxaydo] 10 mg PO Q6H PRN 09/25/16 [History] Allergies/Adverse Reactions: Allergies simvastatin Adverse Reaction (Verified 09/25/16 14:50) See Comments chest pain - Respiratory Orders None Smoking Cessation: Smoking cessation has been advised. For more information, call the [place] Tobacco Quit Line at 4-008-VAVZ-NOW. - Ancillary Orders May use pressure relief devices daily prn, May go on HE w/family/respon republican w /meds at nurse discretion PRN, May consult with Dentist, Forestry [employer], Drier Operator Helper PRN - Mobility Orders Chair, Ambulate - Rehabiliation Orders Rehab Potential: Good Rehab Orders: ROM Exercises, Evaluation for Physical Therapy, Evaluation for Occupational Therapy - Treatments Skin tear care topically daily PRN per policy List/Other: Opsite dressing, leave intact until first post-operative visit. If dressing becomes >50% saturated, contact office, remove dressing and place appropriate dressing in its place. Keep GILES wrap in place. Do not allow for dressing to get wet. Shoaib in place, plan to remove at post-operative day #14-16. Total Joint Precautions x 6 weeks Apply cold therapy wrap 3-6x/day for 20 minutes at a time. Encourage ambulation throughout the day Use Incentive spirometer 10x/hour. Elevate affected extremity above heart as tolerated. Brace: Wear TSCOPE brace x 6 weeks. PT: No knee ROM, WBAT - Diet Orders Regular CERTIFICATION: I certify that the transfer of the above named patient to an Extended Care Facility is necessary for the continuing treatment of the diagnosis listed. The above information is true and accurate reflection of patient's current condition. Confidential - Redisclosure prohibited without a patient's written consent.
[2016-09-25] MEDS ORDERED: Vancomycin 1,250 MG in D5% in Water 250 ML IVPB ONE (14:40)
[2016-09-25] MEDS ORDERED: Albuterol 2.5 MG/3 ML NEBULIZER IH ONE ×2 (14:40→21:09)
[2016-09-25] MEDS ORDERED: Ringers Solution, Lactated 1,000 ML IVC SCH ×2 (14:45→21:59)
--- NOTE | 2016-09-25 14:54 | History & Physical Report ---
Date of Encounter: 09/25/16 Time of Encounter: 14:53 24 Hour HP Update - Instructions Instructions: If the History and Physical is less than 30 days old and was completed prior to A.M. admission and or procedure and has NOT been updated on calendar day of procedure please complete this update prior to performing procedure. - Update Patient reports changes in Medical Condition: No Changes in examination, assessment, or condition: No Changes in Medication: No Preop tests/diagnostics Reviewed: Yes Surgery Remains Indicated: Yes Consent for Planned Operative Procedure(s) Verified: Yes - Pre-Operative Checklist Preoperative Checklist Indicated: No Prophylactic Antibiotic Ordered: Yes Is VTE Prophylaxis Indicated?: Yes
[2016-09-25] MEDS ORDERED: Gabapentin 300 MG CAPSULE PO ONE (15:08)
[2016-09-25] MEDS ORDERED: Famotidine 20 MG/2 ML VIAL IVP ONE (15:08)
--- NOTE | 2016-09-25 15:18 | Anesthesia Evaluation PreOp ---
Date of Encounter: 09/25/16 Time of Encounter: 15:15 - Past History Planned Operation: Left Knee Revision Cardiac History: [place] (2011), HTN, Hyperlipidemia, Arrhythmia (Hx AFib), Cardiac Stent (Stent X1 2011, took Plavix today), Other (CAD) Pulmonary History: COPD DIGITAL ACCOUNT EXECUTIVE History: Denies Any Significant HX Other Medical History: Denies Any Significant HX Anesthesia History: No Prior Anesthetic Complications Alcohol Use: none Drug use: none Medications and Allergies Clopidogrel [Plavix] 75 mg PO DAILY 11/13/14 [History] Atorvastatin [Lipitor] 40 mg PO HS #90 tablet 11/16/14 [Rx] Cyclobenzaprine [Flexeril] 10 mg PO BID PRN 12/19/14 [History] FLUoxetine HCl [Prozac] 20 mg PO DAILY 12/19/14 [History] Folic Acid 1 mg PO DAILY 12/19/14 [History] Metoprolol [Lopressor] 50 mg PO BID 12/19/14 [History] Quetiapine Fumarate [Seroquel] 300 mg PO HS 12/19/14 [History] Gabapentin [Neurontin] 800 mg PO TID 03/15/15 [History] lamoTRIgine [Lamictal] 200 mg PO HS tablet 04/21/15 [Rx] [place] Carbonate 300 mg PO HS 06/15/15 [History] DULoxetine [Cymbalta] 60 mg PO DAILY 08/08/15 [History] Furosemide [Lasix] 20 mg PO DAILY 08/23/15 [History] Potassium Chloride [K-Tab ER] 20 meq PO DAILY 08/23/15 [History] Tiotropium [place] [Spiriva] 18 mcg PO DAILY 08/23/15 [History] ALPRAZolam [Xanax 0.5 MG Tablet] 0.5 mg PO Q6HR PRN 10/25/15 [History] Albuterol Sulfate [Ventolin Hfa] 2 puff IH Q4H PRN 04/23/16 [History] Docusate Sodium [Move It Along] 100 mg PO BID PRN 04/23/16 [History] Fluticasone/Vilanterol [Breo Ellipta 100-25 Mcg INH] 1 each IH HS 04/23/16 [ History] Benzonatate [Tessalon] 100 mg PO TID PRN 08/02/16 [History] FentaNYL PATCH [Duragesic] 25 mcg TD Q72H 08/02/16 [History] Guaifenesin [Guaifenesin ER] 600 mg PO Q12H PRN 08/02/16 [History] MOM Conc [MILK OF [place] conc] 30 ml PO DAILY PRN 08/02/16 [History] Menthol [Biofreeze] 1 appl TP BID PRN MDD apply to shoulders 08/02/16 [History] Nitroglycerin [Nitrostat] 0.4 mg SL Q5M PRN 08/02/16 [History] Aspirin [place] Coated [Aspirin EC] 325 mg PO DAILY #21 tablet. 09/24/16 [Rx] OxyCODONE/APAP 5/325 [Percocet 5/325 MG] 1 - 2 each PO Q6HR PRN #40 09/24/16 [ Rx] Acetaminophen [Tylenol] 500 mg PO Q6HR PRN 09/25/16 [History] Albuterol Sulfate [Ventolin Hfa] 2 puff IH Q4H PRN 09/25/16 [History] Aspirin 325 mg PO DAILY 09/25/16 [History] Fluticasone/Vilanterol [Breo Ellipta 100-25 Mcg INH] 1 each IH HS 09/25/16 [ History] Lactobacillus Acidophilus [Acidophilus] 1 each PO BID 09/25/16 [History] Oxycodone HCl [Oxaydo] 10 mg PO Q6H PRN 09/25/16 [History] Allergies simvastatin Adverse Reaction (Verified 09/25/16 14:50) See Comments chest pain - Meds/Allergy Pre-op Review Medications Reviewed: Yes Allergies Reviewed: Yes Beta Blockers on Current Med List: Yes (Took Metoprolol today 0800) Anesthesia Results - Labs Laboratory Tests 09/19/16 09/19/16 12:27 12:27 WBC 10.9 Hgb 11.6 L Hct 37.3 L Plt Count 230 Sodium 138 Potassium 4.3 BUN 15 Creatinine 1.06 - Imaging EKG: report reviewed (SR) Anesthesia Exam O2 Sat Height 1.7 m Height 1.7 m Weight 89.811 kg Weight 89.811 kg O2 Sat by Pulse Oximetry 96 Vital Signs Temp Pulse Resp BP Pulse Ox 97.5 F L 63 16 107/63 96 09/25/16 15:12 09/25/16 15:12 09/25/16 15:12 09/25/16 15:12 09/25/16 15:12 Height: 5'7 Weight: 197 lbs NPO (# of Hours): MN Pain Scale: 0 - HEENT Pupil (Motor): Pupils equal, EOMI Mallampati: III Teeth: Edentulous Oral Opening: Less than or equal to 3 - DIGITAL ACCOUNT EXECUTIVE LOC: Oriented DIGITAL ACCOUNT EXECUTIVE Motor: Normal RUE, Normal LUE, Normal RLE, Normal Face, Deficit LLE (slight weakness foot) DIGITAL ACCOUNT EXECUTIVE Sensory: Normal: RUE, LUE, RLE, LLE, Face - Cardiac Rhythm: Regular Murmur: None JVD: No Carotid Bruit: No - Pulmonary Breath Sounds: bilateral Clear Respiratory Effort: Symmetrical Anesthesia Assess/Plan ASA Score: 3 (CAD HTN) Anesthetic Plan: General, Regional Monitoring Plan: Standard Monitors Recovery Plan: PACU (Discussed GA and RA, agrees to proceed)
[2016-09-25] MEDS ORDERED: ROPIVACAINE HCL/PF 0.5% 30 ML VIAL ONE (15:36)
[2016-09-25] MEDS ORDERED: *HR* FentaNYL (PF) 100 MCG/2 ML VIAL ONE ×3 (15:36→19:46)
[2016-09-25] MEDS ORDERED: *HR* Midazolam HCl 5 MG/5 ML VIAL IVP ONE (15:36)
--- NOTE | 2016-09-25 16:48 | Anesthesia Procedures ---
Date of Encounter: 09/25/16 Time of Encounter: 16:35 Procedures: Anesthesia - Nerve Block Procedure Date: 09/25/16 Time: 16:35 Allergies/Adv Reactions: Allergies Allergy/AdvReac Type Severity Reaction Status Date / Time simvastatin AdvReac See Verified 09/25/16 14:50 Comments Pre-op Diagnosis: Left Knee Infection Surgical Procedure: Left Total Knee Revision Checklist: Correct Patient Identifier, Correct procedure, History checked Correct side: Left Blood Thinner: No Monitor Applied: EKG, BP, Pulse Oximetry Supplemental Oxygen via Nasal Cannula (L/min): 2 Sedation: Versed (mg): 2 Indication: Post Op Analgesia Pre-op Neuro Deficits: No Block Type: Femoral Catheter placed: No Sterile Technique: Yes Ultrasound used: Yes Anatomy identified: Yes Visual spread of Local: Yes Neuro Stimulation: Yes Nerve Stimulator Range: 0.2 - 0.4 mA Blood on Needle Aspiration: No Smooth Injection of Local: Yes Pain with Injection of Local: No Prep: Chlorhexadine Needle: 22 x 50 mm Stimuplex Local: Ropivacaine (0.5% ) Volume (cc): 30 Number of Attempts: 1 Complications: None/effective block Vitals: Last Vital Signs Temp 97.5 F L 09/25/16 15:12 Pulse 64 09/25/16 16:44 Resp 16 09/25/16 16:44 BP 116/75 09/25/16 16:44 Pulse Ox 98 09/25/16 16:44 VSS throughout procedure. Comments: Patient tolerated well. No immediate complications.
[2016-09-25] MEDS ORDERED: *HR* Propofol 200 MG/20 ML VIAL IVP ONE ×2 (17:34→20:01)
[2016-09-25] MEDS ORDERED: *HR* Enoxaparin 30 MG/0.3 ML SYRINGE SQ SCH (18:00)
[2016-09-25] MEDS ORDERED: *HR* HYDROmorphone 2 MG/ML SYRINGE ONE (20:14)
--- NOTE | 2016-09-25 20:23 | Orthopedic Operative Note ---
Date of procedure: 09/25/16 Pre-op diagnosis: History of infected left total knee status post resection arthroplasty Post-op diagnosis: same (With articulating spacer.) Procedure: Procedure: Left revision total knee patellectomy Estimated blood loss: 500 Hardware: Metal and polyethylene replacement. Biomet SSK femur: 60, 16 x 1 20 Tibia: 67, 14 x 80 Constrained Nandini: 16 Exam Under anesthesia: Well healed incision no drainage or erythema. Procedural Notes: No purulent material no sign of infection Operative procedure: The patient was brought to the operating room and placed on the operating room table. After general anesthesia was administered the operative knee was examined. Findings were noted in the exam under anesthesia. The operative extremity was prepped and draped in sterile surgical fashion. The patient received IV antibiotics prior to skin incision. A standard elliptical midline incision was made centered over the patella around the old incision. The incision was made through the skin and subcutaneous tissue. A medial parapatellar tendon approach was performed. Care was taken to preserve tissue along the medial aspect of the patella. The patella was of small caliber and was excised subperiosteally. And to protect the patella tendon. The deep MCL was released off the medial tibia. The infra patella fat pad was excised. Fluid was encountered this was normal joint fluid, Cultures were obtained . The knee was brought into flexion the poly-was removed. As well as the femoral component. The tibia was sized to a 67, it was reamed up to a 14 x 80. Trial had good fit and fixation. The femur was sized to a 60, was reamed up to a 16 x 120 The finishing guide was seated and the box cut was made. The trial had good fit and fixation. Both trial components were seated and the 16 constrained Nandini was seated and secured. The knee had full flexion and full extension with no instability. The trial components were removed. The knee sat for 2 minutes with a Betadine saline solution. It was irrigated out with 2 L of pulse irrigation. The components were assembled on the back table, the tibia cemented first followed by the femur. The 16 constrained liner was seated and secure. The knee was brought to full extension while the cement hardened. After the cement hardened the knee was irrigated out again bactisure. The knee was closed by the PA. The extensor mechanism was closed with a running #2 PDS suture. The deep tissue was irrigated and closed deep with #1 PDS suture superficially with 0 PDS suture. The skin was closed with skin kodak. The patient was placed in a sterile dressing and postoperative brace. They were extubated and transferred to recovery room in stable condition. Anesthesia: BRADLEY Surgeon: Albert Thapa Filament Welder: Faith Ruiz Condition: stable Disposition: PACU
[2016-09-25] MEDS ORDERED: *HR* HYDROmorphone (PF) 1 MG/ML SYRINGE IVP PRN (21:11)
[2016-09-25] MEDS ORDERED: Albuterol 2.5 MG/3 ML NEBULIZER ONE (21:14)
--- NOTE | 2016-09-25 21:15 | Anesthesia Evaluation Post Op ---
Date of Encounter: 09/25/16 Time of Encounter: 21:25 - Vital Signs Vital Signs: Vital Signs/O2 Sat/Glucose, Most Current Temp Pulse Resp BP Pulse Ox 09/25/16 21:10 82 16 123/60 95 09/25/16 21:00 84 16 115/80 94 09/25/16 20:50 97.0 F L 90 16 126/74 100 09/25/16 17:36 67 16 124/74 96 - Lungs Lungs: Clear Ascult./Percussion - Airway Airway: Non-obstructed - Cardiovascular Regular Rate - Mental Status Mental Status: Alert & Oriented, Answers Appropriately - Nausea Vomiting Nausea Vomiting: Not Present - Hydration Hydration: Ice chips - Discharge PostOp Status: Transfer Patient to floor
[2016-09-25 21:30] LABS: Hemoglobin 11.5 g/dL (12.9-16.9)
[2016-09-25] MEDS ORDERED: *HR* OxyCODONE Immed Rel 5 MG TABLET PO PRN (21:59)
[2016-09-25] MEDS ORDERED: Sennosides 8.6 MG TABLET PO PRN (21:59)
[2016-09-25] MEDS ORDERED: Methyl Salicylate/Menthol 28 GM TUBE TP PRN (21:59)
[2016-09-25] MEDS ORDERED: Benzonatate 100 MG CAPSULE PO PRN (21:59)
[2016-09-25] MEDS ORDERED: Nitroglycerin 0.4 MG TAB.SUBL SL PRN (21:59)
[2016-09-25] MEDS ORDERED: ALPRAZolam 0.5 MG TABLET PO PRN (21:59)
[2016-09-25] MEDS ORDERED: Naloxone 0.4 MG/ML INJ IVP PRN (21:59)
[2016-09-25] MEDS ORDERED: NON-FORMULARY MEDICATION 1 EACH EACH (Fluticasone/Vilanterol [Breo Ellipta 100-25 Mcg Inh] IH SCH (21:59)
[2016-09-25] MEDS ORDERED: Ondansetron 4 MG/2 ML VIAL IVP PRN (21:59)
[2016-09-25] MEDS ORDERED: *HR* FentaNYL PATCH 25 MCG PATCH TD SCH (21:59)
[2016-09-25] MEDS ORDERED: MOM Conc 10 ML UD.LIQ PO PRN ×2 (21:59)
[2016-09-25] MEDS ORDERED: Temazepam 15 MG CAPSULE PO PRN (21:59)
[2016-09-25] MEDS: Lithium Carbonate 300 MG CAPSULE PO SCH (23:38)
[2016-09-25] MEDS: lamoTRIgine 100 MG TABLET PO SCH (23:38)
[2016-09-26] MEDS: (Breo Ellipta 100-25 Mcg Inh) IH SCH ×2 (00:13→21:08)
[2016-09-26] MEDS: Gabapentin 400 MG CAPSULE PO SCH ×4 (00:19→20:58)
[2016-09-26] MEDS: Lactobacillus 1 EACH CAP.SPRINK PO SCH ×3 (00:19→20:57)
[2016-09-26] MEDS ORDERED: Vancomycin 1,000 MG VIAL IVPB SCH (04:00)
[2016-09-26 05:29] LABS: BUN/Creatinine Ratio 18 (6-26); Blood Urea Nitrogen 21 mg/dL (8-26); Calcium 8.9 mg/dL (8.6-10.8); Carbon Dioxide 28 mEq/L (19-29); Chloride 104 mEq/L (98-109); Glucose 105 mg/dL (70-99); Hematocrit 31.6 % (37.5-50.1); Osmolality,Calculated 291 (280-300); Potassium 4.2 mEq/L (3.5-4.5); Sodium 139 mEq/L (136-145); eGFR For African Americans > 60 (> 60); eGFR For Non-African Americans > 60 (> 60)
[2016-09-26 05:31] LABS: Hemoglobin 9.8 g/dL (12.9-16.9)
[2016-09-26] MEDS: *HR* Enoxaparin 30 MG/0.3 ML SYRINGE SQ SCH ×2 (06:00→16:48)
--- NOTE | 2016-09-26 06:57 | Orthopedics Progress Note ---
Date of Encounter: 09/26/16 Time of Encounter: 06:57 - Assessment and Plan (1) Coronary artery disease Current Visit: No Status: Chronic Qualifiers: Coronary Disease-Associated Artery/Lesion type: [place] artery [place] vs. transplanted heart: [place] heart Associated angina: without angina Qualified Code(s): I25.10 - Atherosclerotic heart disease of [place] coronary artery without angina pectoris (2) Tobacco use Current Visit: No Status: Chronic (3) COPD (chronic obstructive pulmonary disease) Current Visit: No Status: Chronic Qualifiers: COPD type: chronic bronchitis Chronic bronchitis type: unspecified Qualified Code(s): J42 - Unspecified chronic bronchitis (4) Frequent falls Current Visit: No Status: Chronic (5) Atrial fib/flutter, transient Current Visit: No Status: Chronic (6) Infection of prosthetic left knee joint Current Visit: No Status: Chronic Qualifiers: Encounter type: subsequent encounter Qualified Code(s): T84.54XD - Infection and inflammatory reaction due to internal left knee prosthesis, subsequent encounter (7) Congestive heart failure Current Visit: No Status: Chronic Qualifiers: Congestive heart failure type: unspecified congestive heart failure type Congestive heart failure chronicity: chronic Qualified Code(s): I50.9 - Heart failure, unspecified (8) Status post revision of total replacement of left knee Current Visit: Yes Status: Acute (9) History of infection of total joint prosthesis of knee Current Visit: Yes Status: Acute (10) Chronic pain Current Visit: Yes Status: Acute Qualifiers: Chronic pain type: other chronic pain Qualified Code(s): G89.29 - Other chronic pain (11) Obesity Current Visit: Yes Status: Acute Qualifiers: Obesity type: due to excess calories Obesity classification: unspecified obesity classification Serious obesity comorbidity presence: without serious comorbidity Qualified Code(s): E66.09 - Other obesity due to excess calories (12) Acute blood loss anemia Current Visit: Yes Status: Acute Subjective Interval history: Patient was seen this morning doing well without complaints. Afebrile vital signs stable. Operative extremity: Neurovascularly intact Dressing clean dry and intact Calves nontender Assessment and plan: Continue with postoperative care Hematocrit 31.6 Objective Vital signs: Vital Signs Temp Pulse Resp BP Pulse Ox 09/26/16 04:53 20 95 09/26/16 04:28 97.9 F 77 18 82/52 97 09/26/16 00:27 18 98 09/25/16 23:52 97.8 F 73 16 102/68 99 09/25/16 22:50 97.8 F 80 14 108/75 98 09/25/16 22:20 77 16 104/69 98 09/25/16 21:50 97.6 F 77 14 117/73 97 09/25/16 21:30 97.0 F L 79 14 116/80 96 09/25/16 21:20 97.6 F 79 14 123/77 100 09/25/16 21:10 82 16 123/60 95 09/25/16 21:00 84 16 115/80 94 09/25/16 20:50 97.0 F L 90 16 126/74 100 09/25/16 17:36 67 16 124/74 96 09/25/16 17:13 67 16 106/75 97 09/25/16 16:44 64 16 116/75 98 09/25/16 16:30 62 16 114/73 98 09/25/16 15:12 97.5 F L 63 16 107/63 96 Intake and Output 09/25/16 09/25/16 09/26/16 15:59 23:59 07:59 Intake Total 240 / 240 Output Total 500 / 500 280 / 280 Balance -500 / -500 -40 / -40 Intake: Oral 240 / 240 Output: Urine 280 / 280 Estimated Blood Loss 500 / 500 Other: Weight 89.811 kg - Labs CBC & BMP: 09/26/16 04:43 09/26/16 04:43 Labs: Abnormal lab results Hgb 9.8 g/dL (12.9-16.9) L D 09/26/16 04:43 Hct 31.6 % (37.5-50.1) L 09/26/16 04:43 Glucose 105 mg/dL (70-99) H 09/26/16 04:43 - VTE Documentation of Mechanical Device: Venous foot pump, device Consult Discharge Plan - Plan Referrals: Sandro Ying MD [Primary Care Provider] -
[2016-09-26] MEDS: Tiotropium 18 MCG inhalation IH SCH (08:18)
[2016-09-26] MEDS: *HR* OxyCODONE Immed Rel 5 MG TABLET PO PRN ×4 (08:21→21:02)
[2016-09-26] MEDS: Furosemide 20 MG TABLET PO SCH (08:52)
[2016-09-26] MEDS: Aspirin 325 MG TABLET PO SCH (08:52)
[2016-09-26] MEDS: FLUoxetine 20 MG CAPSULE PO SCH (08:52)
[2016-09-26] MEDS: Folic Acid 1 MG TABLET PO SCH (08:52)
[2016-09-26] MEDS: *HR* HYDROmorphone (PF) 1 MG/ML SYRINGE IVP PRN ×3 (10:45→21:57)
--- NOTE | 2016-09-26 11:55 | Event Note ---
Date of Encounter: 09/26/16 Time of Encounter: 13:07 PCR - POD#1 - Left TKR Revision Patient seen at bedside. Dressing > 75% saturated, changed and no active bleeding. 63 k[place]ak. Pain control: adequate, continue Fentanyl patch Participating in PT. All questions and concerns addressed. Educated on use of incentive spirometer, ambulation, and hydration. Patient educated on post-operative restrictions and care. Addressed: Dressing changed today. No knee ROM, in TSCOPE brace. Daily dressing checks to be performed. New dressing placed if > 50% saturated, with ABD and GILES placement, then Tscope D/C plan:.Resident at [facility], plan to D/C back there.
[2016-09-26] MEDS: Vancomycin 1,250 MG in D5% in Water 250 ML IVPB SCH (16:41)
[2016-09-26] MEDS: lamoTRIgine 100 MG TABLET PO SCH (20:57)
[2016-09-26] MEDS: Lithium Carbonate 300 MG CAPSULE PO SCH (20:58)
[2016-09-27] MEDS: *HR* OxyCODONE Immed Rel 5 MG TABLET PO PRN ×5 (01:03→22:15)
[2016-09-27] MEDS: Vancomycin 1,250 MG in D5% in Water 250 ML IVPB SCH ×2 (04:05→16:20)
[2016-09-27] MEDS: *HR* HYDROmorphone (PF) 1 MG/ML SYRINGE IVP PRN ×2 (04:07→09:51)
[2016-09-27 05:45] LABS: Hematocrit 24.9 % (37.5-50.1)
[2016-09-27 05:49] LABS: Hemoglobin 7.9 g/dL (12.9-16.9)
[2016-09-27 05:58] LABS: BUN/Creatinine Ratio 15 (6-26); Blood Urea Nitrogen 14 mg/dL (8-26); Calcium 8.6 mg/dL (8.6-10.8); Carbon Dioxide 27 mEq/L (19-29); Chloride 102 mEq/L (98-109); Glucose 131 mg/dL (70-99); Osmolality,Calculated 282 (280-300); Potassium 3.4 mEq/L (3.5-4.5); Sodium 135 mEq/L (136-145); eGFR For African Americans > 60 (> 60); eGFR For Non-African Americans > 60 (> 60)
[2016-09-27] MEDS: *HR* Enoxaparin 30 MG/0.3 ML SYRINGE SQ SCH ×2 (06:10→16:20)
[2016-09-27] MEDS: Tiotropium 18 MCG inhalation IH SCH (08:07)
[2016-09-27] MEDS: Furosemide 20 MG TABLET PO SCH (08:16)
[2016-09-27] MEDS: Aspirin 325 MG TABLET PO SCH (08:16)
[2016-09-27] MEDS: Folic Acid 1 MG TABLET PO SCH (08:16)
[2016-09-27] MEDS: FLUoxetine 20 MG CAPSULE PO SCH (08:16)
[2016-09-27] MEDS: Gabapentin 400 MG CAPSULE PO SCH ×3 (08:17→21:27)
[2016-09-27] MEDS: Lactobacillus 1 EACH CAP.SPRINK PO SCH ×2 (08:17→21:27)
--- NOTE | 2016-09-27 08:21 | Orthopedics Progress Note ---
Date of Encounter: 09/27/16 Time of Encounter: 08:21 - Assessment and Plan (1) Coronary artery disease Current Visit: No Status: Chronic Qualifiers: Coronary Disease-Associated Artery/Lesion type: [place] artery [place] vs. transplanted heart: [place] heart Associated angina: without angina Qualified Code(s): I25.10 - Atherosclerotic heart disease of [place] coronary artery without angina pectoris (2) Tobacco use Current Visit: No Status: Chronic (3) COPD (chronic obstructive pulmonary disease) Current Visit: No Status: Chronic Qualifiers: COPD type: chronic bronchitis Chronic bronchitis type: unspecified Qualified Code(s): J42 - Unspecified chronic bronchitis (4) Frequent falls Current Visit: No Status: Chronic (5) Atrial fib/flutter, transient Current Visit: No Status: Chronic (6) Infection of prosthetic left knee joint Current Visit: No Status: Chronic Qualifiers: Encounter type: subsequent encounter Qualified Code(s): T84.54XD - Infection and inflammatory reaction due to internal left knee prosthesis, subsequent encounter (7) Congestive heart failure Current Visit: No Status: Chronic Qualifiers: Congestive heart failure type: unspecified congestive heart failure type Congestive heart failure chronicity: chronic Qualified Code(s): I50.9 - Heart failure, unspecified (8) Status post revision of total replacement of left knee Current Visit: Yes Status: Acute (9) History of infection of total joint prosthesis of knee Current Visit: Yes Status: Acute (10) Chronic pain Current Visit: Yes Status: Acute Qualifiers: Chronic pain type: other chronic pain Qualified Code(s): G89.29 - Other chronic pain (11) Obesity Current Visit: Yes Status: Acute Qualifiers: Obesity type: due to excess calories Obesity classification: unspecified obesity classification Serious obesity comorbidity presence: without serious comorbidity Qualified Code(s): E66.09 - Other obesity due to excess calories (12) Acute blood loss anemia Current Visit: Yes Status: Acute Subjective Interval history: Patient was seen this morning doing well without complaints. Afebrile vital signs stable. Operative extremity: Neurovascularly intact Dressing clean dry and intact Calves nontender Assessment and plan: Continue with postoperative care Hematocrit 24 transfuse 2 units discharged after transfusion. Objective Vital signs: Vital Signs Temp Pulse Resp BP Pulse Ox 09/27/16 06:39 98.5 F 87 18 113/66 97 09/27/16 04:54 16 98 09/27/16 04:13 98.4 F 82 16 104/63 92 09/27/16 03:37 97/61 09/27/16 00:51 99.9 F H 86 19 109/57 93 09/27/16 00:12 16 98 09/26/16 20:32 16 99 09/26/16 19:58 98.3 F 88 18 134/79 96 09/26/16 16:36 15 98 09/26/16 15:45 97.8 F 90 128/71 97 09/26/16 11:03 17 95 09/26/16 10:53 98.4 F 87 16 132/80 96 09/26/16 09:00 99 Intake and Output 09/26/16 09/27/16 09/27/16 23:59 07:59 15:59 Intake Total 450 / 450 250 / 250 Output Total 250 / 250 600 / 600 Balance 200 / 200 -350 / -350 Intake: IV Fluids 250 / 250 250 / 250 Vancocin 1,250 MG In 250 / 250 250 / 250 Dextrose 5% 250 ML @ 166. 67 mls/hr IVPB Q12H [facility] Rx#:[id number] Oral 200 / 200 Output: Urine 250 / 250 600 / 600 Other: Meal Dinner Percent of Meal Consumed 0% # Voids 1 - Labs CBC & BMP: 09/27/16 05:06 09/27/16 05:06 Labs: Abnormal lab results Hgb 7.9 g/dL (12.9-16.9) L D 09/27/16 05:06 Hct 24.9 % (37.5-50.1) L 09/27/16 05:06 Sodium 135 mEq/L (136-145) L 09/27/16 05:06 Potassium 3.4 mEq/L (3.5-4.5) L 09/27/16 05:06 Glucose 131 mg/dL (70-99) H 09/27/16 05:06 - VTE Documentation of Mechanical Device: Venous foot pump, device Consult Discharge Plan - Plan Referrals: Sandro Ying MD [Primary Care Provider] -
[2016-09-27] MEDS ORDERED: 0.9 % Sodium Chloride 250 ML ONE ×2 (10:58→15:53)
--- NOTE | 2016-09-27 11:27 | Event Note ---
Date of Encounter: 09/27/16 Time of Encounter: 12:00 PCR - POD#2 - Left TKR Revision Patient seen at bedside. Dressing clean. Patient somnolent - likely concurrent pain medication and psych medications. Pain control: adequate, continue Fentanyl patch Participating in PT. All questions and concerns addressed. Educated on use of incentive spirometer, ambulation, and hydration. Patient educated on post-operative restrictions and care. Addressed: Dressing changed today. No knee ROM, in TSCOPE brace. Daily dressing checks to be performed. New dressing placed if > 50% saturated, with ABD and GILES placement, then Tscope D/C plan:.Resident at [facility], plan to D/C back there.
[2016-09-27] MEDS: lamoTRIgine 100 MG TABLET PO SCH (21:27)
[2016-09-27] MEDS: Lithium Carbonate 300 MG CAPSULE PO SCH (21:27)
[2016-09-27] MEDS: (Breo Ellipta 100-25 Mcg Inh) IH SCH (21:31)
[2016-09-28] MEDS: *HR* OxyCODONE Immed Rel 5 MG TABLET PO PRN ×3 (02:23→12:38)
[2016-09-28] MEDS: Vancomycin 1,250 MG in D5% in Water 250 ML IVPB SCH (05:32)
[2016-09-28] MEDS: *HR* Enoxaparin 30 MG/0.3 ML SYRINGE SQ SCH (05:35)
[2016-09-28 05:51] LABS: Hematocrit 31.2 % (37.5-50.1)
[2016-09-28 06:05] LABS: BUN/Creatinine Ratio 12 (6-26); Blood Urea Nitrogen 11 mg/dL (8-26); Calcium 8.9 mg/dL (8.6-10.8); Carbon Dioxide 26 mEq/L (19-29); Chloride 108 mEq/L (98-109); Glucose 81 mg/dL (70-99); Osmolality,Calculated 288 (280-300); Potassium 3.3 mEq/L (3.5-4.5); Sodium 140 mEq/L (136-145); eGFR For African Americans > 60 (> 60); eGFR For Non-African Americans > 60 (> 60)
[2016-09-28] MEDS: Aspirin 325 MG TABLET PO SCH (07:35)
[2016-09-28] MEDS: FLUoxetine 20 MG CAPSULE PO SCH (07:36)
[2016-09-28] MEDS: Gabapentin 400 MG CAPSULE PO SCH (07:37)
[2016-09-28] MEDS: Folic Acid 1 MG TABLET PO SCH (07:37)
[2016-09-28] MEDS: Lactobacillus 1 EACH CAP.SPRINK PO SCH (07:37)
[2016-09-28] MEDS: Tiotropium 18 MCG inhalation IH SCH (07:53)
--- NOTE | 2016-09-28 08:40 | Orthopedics Progress Note ---
Date of Encounter: 09/28/16 Time of Encounter: 08:39 - Assessment and Plan (1) Coronary artery disease Current Visit: No Status: Chronic Qualifiers: Coronary Disease-Associated Artery/Lesion type: [place] artery [place] vs. transplanted heart: [place] heart Associated angina: without angina Qualified Code(s): I25.10 - Atherosclerotic heart disease of [place] coronary artery without angina pectoris (2) Tobacco use Current Visit: No Status: Chronic (3) COPD (chronic obstructive pulmonary disease) Current Visit: No Status: Chronic Qualifiers: COPD type: chronic bronchitis Chronic bronchitis type: unspecified Qualified Code(s): J42 - Unspecified chronic bronchitis (4) Frequent falls Current Visit: No Status: Chronic (5) Atrial fib/flutter, transient Current Visit: No Status: Chronic (6) Infection of prosthetic left knee joint Current Visit: No Status: Chronic Qualifiers: Encounter type: subsequent encounter Qualified Code(s): T84.54XD - Infection and inflammatory reaction due to internal left knee prosthesis, subsequent encounter (7) Congestive heart failure Current Visit: No Status: Chronic Qualifiers: Congestive heart failure type: unspecified congestive heart failure type Congestive heart failure chronicity: chronic Qualified Code(s): I50.9 - Heart failure, unspecified (8) Status post revision of total replacement of left knee Current Visit: Yes Status: Acute (9) History of infection of total joint prosthesis of knee Current Visit: Yes Status: Acute (10) Chronic pain Current Visit: Yes Status: Acute Qualifiers: Chronic pain type: other chronic pain Qualified Code(s): G89.29 - Other chronic pain (11) Obesity Current Visit: Yes Status: Acute Qualifiers: Obesity type: due to excess calories Obesity classification: unspecified obesity classification Serious obesity comorbidity presence: without serious comorbidity Qualified Code(s): E66.09 - Other obesity due to excess calories (12) Acute blood loss anemia Current Visit: Yes Status: Acute Subjective Interval history: Patient was seen this morning doing well without complaints.The patient tripped over because tachycardia doing well this morning Afebrile vital signs stable. Operative extremity: Neurovascularly intact Dressing clean dry and intact Calves nontender Assessment and plan: Continue with postoperative care Hematocrit 31 discharged today Objective Vital signs: Vital Signs Temp Pulse Resp BP Pulse Ox 09/28/16 07:54 16 95 09/28/16 07:10 98.7 F 84 16 105/68 95 07/27/17 05:38 79 108/67 09/28/16 03:00 89 97/60 09/27/16 23:53 98.5 F 85 20 90/41 92 09/27/16 23:50 90/48 09/27/16 20:00 98.2 F 156 18 107/71 96 09/27/16 19:43 98.2 F 146 24 114/65 96 09/27/16 17:00 98.8 F 89 19 123/70 98 09/27/16 16:45 99.0 F 89 18 142/72 97 09/27/16 16:32 18 98 09/27/16 16:00 98.6 F 94 18 132/71 99 09/27/16 14:01 98.4 F 86 17 125/68 98 09/27/16 11:35 98.2 F 84 18 116/69 99 09/27/16 11:20 98.3 F 84 17 96/52 98 09/27/16 11:03 18 97 Intake and Output 09/27/16 09/28/16 09/28/16 23:59 07:59 15:59 Intake Total 250 / 250 707 / 707 Output Total 400 / 400 Balance -150 / -150 707 / 707 Intake: IV Fluids 250 / 250 Lactated Ringers 1,000 ML 0 / 0 @ 75 mls/hr IVC .[id number] [facility] Rx#:[id number] Vancocin 1,250 MG In 250 / 250 Dextrose 5% 250 ML @ 166. 67 mls/hr IVPB Q12H [facility] Rx#:[id number] Oral 400 / 400 Blood Product 0 / 0 307 / 307 Rbcs Leuko Poor As-1 0 / 0 307 / 307 Unit [id number] Output: Urine 400 / 400 Other: # Voids 1 700 - Labs CBC & BMP: 09/28/16 05:39 09/28/16 05:39 Labs: Abnormal lab results Hgb 10.0 g/dL (12.9-16.9) L D 09/28/16 05:39 Hct 31.2 % (37.5-50.1) L 09/28/16 05:39 Potassium 3.3 mEq/L (3.5-4.5) L 07/27/17 05:39 - VTE Documentation of Mechanical Device: Venous foot pump, device Consult Discharge Plan - Plan Referrals: Sandro Ying MD [Primary Care Provider] -
[2016-09-28] MEDS: Furosemide 20 MG TABLET PO SCH (09:00)
[2016-09-28 11:17] VITALS: BP 107/65
--- NOTE | 2016-09-28 11:31 | Event Note ---
Date of Encounter: 09/28/16 Time of Encounter: 11:30 PCR - POD#2 - Left TKR Revision Patient seen at bedside. Dressing clean. On pain medication and psych medications. Pain control: adequate, continue Fentanyl patch Participating in PT. All questions and concerns addressed. Educated on use of incentive spirometer, ambulation, and hydration. Patient educated on post-operative restrictions and care. Addressed: Dressing changed today. No knee ROM, in TSCOPE brace. Daily dressing checks to be performed. New dressing placed if > 50% saturated, with ABD and GILES placement, then Tscope D/C plan:.Resident at [facility], plan to D/C back there
--- NOTE | 2016-09-28 14:20 | Electrocardiograph Report ---
[place] [id number] Test Date: 2016-09-27 Pat Name: Pablito Timmons Department: 114 Room: 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
== END 2016-09-28 14:25 | DRG 302 ==
LOC: SAMDAY 13:57 → 3NENU 21:43
PROVIDERS: ADMIT Orthopaedic Surgery; ATTEND Orthopaedic Surgery

== ENCOUNTER 2019-02-25 20:13 | Observation (INO) ==
[2019-02-25] MEDS ORDERED: 0.9 % Sodium Chloride 1,000 ML IVC ONE (20:36)
[2019-02-25 21:45] LABS: Basophils # 0.1 K/mcL (0.0-0.2); Basophils % 0.4 %; Eosinophils # 0.5 K/mcL (0.0-0.6); Eosinophils % 3.3 %; Hematocrit 45.2 % (37.5-50.1); Hemoglobin 16.1 g/dL (12.9-16.9); Immature Granulocytes % 0.5 % (0-4); Lymphocytes # 3.7 K/mcL (0.6-4.6); Lymphocytes % 24.9 %; Mean Corpuscular HGB Conc 35.6 g/dL (31.6-35.5); Mean Corpuscular Hemoglobin 34.2 pg (28.0-33.3); Mean Platelet Volume 8.5 fL (9.4-12.4); Monocytes # 0.7 K/mcL (0.0-1.3); Monocytes % 4.5 %; Neutrophils # 9.9 K/mcL (1.6-8.9); Platelet Count 225 K/mcL (140-400); Red Blood Count 4.71 M/mcL (4.19-5.50); Red Cell Distribution Width 13.3 % (11.5-14.5); Segmented Neutrophils % 66.4 %; White Blood Count 14.9 K/mcL (4.3-11.1)
[2019-02-25 21:50] LABS: INR 1.6
[2019-02-25 22:06] LABS: Alanine Aminotransferase 28 Units/L (7-52); Albumin 4.2 g/dL (3.5-5.7); Albumin/Globulin Ratio 1.8 (1.1-2.2); Alkaline Phosphatase 94 Units/L (34-104); Aspartate Amino Transferase 18 Units/L (13-39); BUN/Creatinine Ratio 9 (6-26); Bilirubin,Total 0.4 mg/dL (0.3-1.0); Blood Urea Nitrogen 9 mg/dL (6-20); Calcium 9.2 mg/dL (8.6-10.3); Carbon Dioxide 22 mEq/L (23-29); Chloride 107 mEq/L (98-107); Ethanol 151 mg/dL (Less than 10); Globulin 2.3 g/dL (2.4-3.5); Glucose 103 mg/dL (70-105); Osmolality,Calculated 289 (280-300); Potassium 4.1 mEq/L (3.5-5.1); Sodium 140 mEq/L (136-145); Total Protein 6.5 g/dL (6.4-8.9); eGFR For African Americans > 60 (> 60); eGFR For Non-African Americans > 60 (> 60)
[2019-02-25] MEDS ORDERED: Morphine Sulfate 2 MG/ML SYRINGE IVP PRN (22:44)
[2019-02-25] MEDS ORDERED: Naloxone 0.4 MG/ML INJ IVP PRN (22:46)
[2019-02-25] MEDS ORDERED: *HR* LORazepam 2 MG/ML VIAL IVP PRN ×3 (22:48)
[2019-02-26] MEDS ORDERED: Acetaminophen IV 1,000 MG/100 ML INFUS..BTL IVPB ONE (06:11)
[2019-02-26] MEDS ORDERED: *HR* OxyCODONE Immed Rel 5 MG TABLET PO PRN (07:58)
[2019-02-26] MEDS ORDERED: Albuterol 2.5 MG/3 ML NEBULIZER IH PRN (07:58)
[2019-02-26] MEDS ORDERED: NON-FORMULARY MEDICATION 1 EACH EACH (Fluticasone/Vilanterol [Breo Ellipta 100-25 Mcg Inh] IH SCH (09:00)
[2019-02-26] MEDS ORDERED: *HR* Acetylcysteine 20% 600 MG/3 ML ORAL SYRINGE PO SCH (09:00)
[2019-02-26] MEDS ORDERED: Tiotropium 18 MCG inhalation IH SCH (09:00)
[2019-02-26] MEDS ORDERED: Budesonide/Formoterol 160/4.5 1 PUFF INH IH SCH (10:00)
[2019-02-26 10:47] LABS: Basophils # 0.1 K/mcL (0.0-0.2); Basophils % 0.4 %; Eosinophils # 0.4 K/mcL (0.0-0.6); Eosinophils % 2.7 %; Hematocrit 43.8 % (37.5-50.1); Hemoglobin 15.2 g/dL (12.9-16.9); Immature Granulocytes % 0.4 % (0-4); Lymphocytes # 3.1 K/mcL (0.6-4.6); Lymphocytes % 19.8 %; Mean Corpuscular HGB Conc 34.7 g/dL (31.6-35.5); Mean Corpuscular Hemoglobin 33.6 pg (28.0-33.3); Mean Corpuscular Volume 96.7 fL (83.0-100.0); Mean Platelet Volume 8.6 fL (9.4-12.4); Monocytes # 0.8 K/mcL (0.0-1.3); Monocytes % 5.2 %; Neutrophils # 11.2 K/mcL (1.6-8.9); Platelet Count 219 K/mcL (140-400); Red Blood Count 4.53 M/mcL (4.19-5.50); Red Cell Distribution Width 13.3 % (11.5-14.5); Segmented Neutrophils % 71.5 %; White Blood Count 15.7 K/mcL (4.3-11.1)
[2019-02-26 11:00] VITALS: BP 122/74
[2019-02-26 11:08] LABS: Alanine Aminotransferase 23 Units/L (7-52); Albumin 3.9 g/dL (3.5-5.7); Albumin/Globulin Ratio 1.6 (1.1-2.2); Alkaline Phosphatase 91 Units/L (34-104); Aspartate Amino Transferase 15 Units/L (13-39); BUN/Creatinine Ratio 13 (6-26); Bilirubin,Total 0.8 mg/dL (0.3-1.0); Blood Urea Nitrogen 12 mg/dL (6-20); Calcium 8.9 mg/dL (8.6-10.3); Carbon Dioxide 24 mEq/L (23-29); Chloride 107 mEq/L (98-107); Globulin 2.4 g/dL (2.4-3.5); Glucose 89 mg/dL (70-105); Magnesium 1.9 mg/dL (1.6-2.6); Osmolality,Calculated 285 (280-300); Phosphorous 2.8 mg/dL (2.7-4.5); Sodium 138 mEq/L (136-145); Total Protein 6.3 g/dL (6.4-8.9); eGFR For African Americans > 60 (> 60); eGFR For Non-African Americans > 60 (> 60)
[2019-02-26 12:50] LABS: Bilirubin,Urine Negative (Negative); Blood,Urine Negative (Negative); Clarity,Urine Clear (Clear); Color,Urine Yellow (Yellow); Glucose,Urine (UA) Normal (Normal); Ketones,Urine Negative (Negative); Leukocyte Esterase,Urine Negative (Negative); Nitrite,Urine Negative (Negative); Protein,Urine Negative (Neg-Trace); Specific Gravity,Urine 1.025 (1.010-1.025); Urobilinogen,Urine Normal (Normal)
[2019-02-26] MEDS ORDERED: *HR* Rivaroxaban 10 MG TABLET PO SCH (13:15)
[2019-02-26] MEDS ORDERED: lamoTRIgine 100 MG TABLET PO SCH (21:00)
== END 2019-02-26 14:04 | disposition home or self-care (01) ==
LOC: 3BNU 20:13 → EMEROOARM 20:13 → 3BNU 02-26 00:12
PROVIDERS: ADMIT Internal Medicine; ATTEND Internal Medicine

== ENCOUNTER 2019-12-06 16:51 | Observation (INO) ==
[2019-12-07] MEDS ORDERED: *HR* OxyCODONE/APAP 5/325 TABLET PO ONE ×2 (09:29→18:07)
[2019-12-07 13:26] LABS: Adenovirus Not Detected (Not Detect); Bordetella Pertussis Not Detected (Not Detect); Chlamydophila pneumoniae Not Detected (Not Detect); Coronavirus 229E Not Detected (Not Detect); Coronavirus HKU1 Not Detected (Not Detect); Coronavirus NL63 Not Detected (Not Detect); Coronavirus OC43 Not Detected (Not Detect); Human Metapneumovirus Not Detected (Not Detect); Human Rhinovirus/Enterovirus Not Detected (Not Detect); Influenza A Subtype 2009 H1 Not Detected (Not Detect); Influenza B Not Detected (Not Detect); Mycoplasma pneumoniae Not Detected (Not Detect); Parainfluenza Virus 1 Not Detected (Not Detect); Parainfluenza Virus 2 Not Detected (Not Detect); Parainfluenza Virus 3 Not Detected (Not Detect); Parainfluenza Virus 4 Not Detected (Not Detect); Respiratory Syncytial Virus Not Detected (Not Detect); SARS-CoV-2 Not Detected (Not Detect)
[2019-12-07] MEDS ORDERED: Aspirin 81 MG TAB.CHEW PO ONE (18:15)
[2019-12-07] MEDS ORDERED: Gabapentin 400 MG CAPSULE PO ONE (18:30)
[2019-12-07] MEDS ORDERED: Aspirin 325 MG TABLET PO ONE (18:58)
[2019-12-07] MEDS ORDERED: *HR* FentaNYL (PF) 100 MCG/2 ML VIAL IVP ONE (20:19)
[2019-12-07] MEDS ORDERED: Naloxone 0.4 MG/ML INJ IVP PRN (20:49)
[2019-12-07 20:56] LABS: Basophils # 0.1 K/mcL (0.0-0.2); Basophils % 0.7 %; Eosinophils # 0.5 K/mcL (0.0-0.6); Eosinophils % 4.6 %; Hematocrit 40.3 % (37.5-50.1); Hemoglobin 13.3 g/dL (12.9-16.9); Immature Granulocytes % 0.3 % (0-4); Lymphocytes # 2.9 K/mcL (0.6-4.6); Lymphocytes % 29.9 %; Mean Corpuscular Hemoglobin 31.6 pg (28.0-33.3); Mean Corpuscular Volume 95.7 fL (83.0-100.0); Mean Platelet Volume 8.8 fL (9.4-12.4); Monocytes # 0.9 K/mcL (0.0-1.3); Monocytes % 8.8 %; Neutrophils # 5.4 K/mcL (1.6-8.9); Nucleated Red Blood Cells 0.2 /100 WBC (0); Platelet Count 212 K/mcL (140-400); Red Blood Count 4.21 M/mcL (4.19-5.50); Red Cell Distribution Width 12.5 % (11.5-14.5); Segmented Neutrophils % 55.7 %; White Blood Count 9.7 K/mcL (4.3-11.1)
[2019-12-07 21:03] LABS: INR 1.1; Prothrombin Time 12.8 Seconds (9.4-12.1)
[2019-12-07 21:18] LABS: BUN/Creatinine Ratio 16 (6-26); Blood Urea Nitrogen 19 mg/dL (6-20); Calcium 8.8 mg/dL (8.6-10.3); Carbon Dioxide 24 mEq/L (23-29); Chloride 106 mEq/L (98-107); Glucose 93 mg/dL (70-105); Osmolality,Calculated 288 (280-300); Potassium 4.1 mEq/L (3.5-5.1); Sodium 138 mEq/L (136-145); eGFR For African Americans > 60 (> 60); eGFR For Non-African Americans > 60 (> 60)
[2019-12-07] MEDS ORDERED: Nitroglycerin 0.4 MG TAB.SUBL SL PRN (22:01)
[2019-12-07] MEDS ORDERED: *HR* LORazepam 2 MG/ML VIAL IVP PRN ×3 (22:35)
[2019-12-07] MEDS ORDERED: Perflutren Lipid Microsphere 1.3 ML in 0.9 % Sodium Chloride 8.7 ML IVP PRN (22:39)
[2019-12-07] MEDS: Thiamine (B-1) 100 MG, Folic Acid 1 MG, MVI, adult with vitamin K 10 ML in 0.9 % Sodi... IVPB SCH (22:57)
[2019-12-08] MEDS ORDERED: *HR* Heparin 5,000 UNIT/ML VIAL SQ SCH (06:00)
[2019-12-08 07:41] LABS: Hematocrit 41.6 % (37.5-50.1); Hemoglobin 13.6 g/dL (12.9-16.9); Mean Corpuscular HGB Conc 32.7 g/dL (31.6-35.5); Mean Corpuscular Hemoglobin 31.4 pg (28.0-33.3); Mean Corpuscular Volume 96.1 fL (83.0-100.0); Mean Platelet Volume 8.8 fL (9.4-12.4); Platelet Count 200 K/mcL (140-400); Red Blood Count 4.33 M/mcL (4.19-5.50); Red Cell Distribution Width 12.6 % (11.5-14.5); White Blood Count 7.1 K/mcL (4.3-11.1)
[2019-12-08 08:03] LABS: BUN/Creatinine Ratio 16 (6-26); Blood Urea Nitrogen 17 mg/dL (6-20); Carbon Dioxide 25 mEq/L (23-29); Chloride 107 mEq/L (98-107); Glucose 98 mg/dL (70-105); Osmolality,Calculated 288 (280-300); Potassium 4.2 mEq/L (3.5-5.1); Sodium 138 mEq/L (136-145); eGFR For African Americans > 60 (> 60); eGFR For Non-African Americans > 60 (> 60)
[2019-12-08 09:18] LABS: Thyroid Stimulating Hormone 2.174 mcIU/mL (0.340-5.600)
[2019-12-08] MEDS: amLODIPine 5 MG TABLET PO SCH (09:40)
[2019-12-08] MEDS: Gabapentin 400 MG CAPSULE PO SCH ×3 (09:40→20:17)
[2019-12-08] MEDS: lisinopriL 10 MG TABLET PO SCH (09:40)
[2019-12-08] MEDS ORDERED: Regadenoson 0.4 MG/5 ML SYRINGE IVP ONE (09:46)
[2019-12-08] MEDS: Tiotropium 18 MCG inhalation IH SCH (10:57)
[2019-12-08] MEDS ORDERED: Perflutren Lipid Microsphere 1.3 ML in 0.9 % Sodium Chloride 8.7 ML IVP PRN (13:45)
[2019-12-08] MEDS ORDERED: *HR* Heparin 5,000 UNIT/ML VIAL IVP PRN ×2 (15:10)
[2019-12-08] MEDS ORDERED: *HR* Heparin 5,000 UNIT/ML VIAL IVP ONE (15:10)
[2019-12-08 15:37] LABS: Hematocrit 42.1 % (37.5-50.1); Hemoglobin 13.8 g/dL (12.9-16.9); Mean Corpuscular HGB Conc 32.8 g/dL (31.6-35.5); Mean Corpuscular Hemoglobin 30.9 pg (28.0-33.3); Mean Corpuscular Volume 94.2 fL (83.0-100.0); Mean Platelet Volume 8.8 fL (9.4-12.4); Platelet Count 223 K/mcL (140-400); Red Blood Count 4.47 M/mcL (4.19-5.50); Red Cell Distribution Width 12.4 % (11.5-14.5); White Blood Count 8.9 K/mcL (4.3-11.1)
[2019-12-08 15:45] LABS: INR 1.1; Prothrombin Time 12.4 Seconds (9.4-12.1)
[2019-12-08 15:47] LABS: Heparin anti-factor XA UFH < 0.04 IU/mL (0.30-0.70)
[2019-12-08] MEDS ORDERED: Acetaminophen 325 MG TABLET PO ONE (15:50)
[2019-12-08] MEDS: Heparin 25,000UNIT/250ML 1/2NS 25,000 UNIT/250 ML IV.SOLN IVC SCH (17:38)
[2019-12-08] MEDS: Thiamine (B-1) 100 MG, Folic Acid 1 MG, MVI, adult with vitamin K 10 ML in 0.9 % Sodi... IVPB SCH (17:45)
[2019-12-08] MEDS ORDERED: Morphine Sulfate 2 MG/ML SYRINGE IVP ONE (21:00)
[2019-12-09] MEDS: Tiotropium 18 MCG inhalation IH SCH (07:57)
[2019-12-09] MEDS: lisinopriL 10 MG TABLET PO SCH (08:00)
[2019-12-09] MEDS: Gabapentin 400 MG CAPSULE PO SCH ×3 (08:00→21:16)
[2019-12-09] MEDS: amLODIPine 5 MG TABLET PO SCH (08:01)
[2019-12-09] MEDS ORDERED: 0.9 % Sodium Chloride 2,000 ML ONE (12:52)
[2019-12-09] MEDS ORDERED: *HR* Heparin 10,000 UNIT/10 ML VIAL ONE (12:52)
[2019-12-09] MEDS ORDERED: Nitroglycerin 1,000 MCG/10 ML VIAL IV ONE (12:52)
[2019-12-09] MEDS ORDERED: Heparin 1,000 UNITS/500 mL 500 ML ONE (12:52)
[2019-12-09] MEDS ORDERED: ISOVUE-370 200 ML INFUS..BTL ONE (12:52)
[2019-12-09] MEDS ORDERED: *HR* FentaNYL (PF) 100 MCG/2 ML VIAL ONE (13:16)
[2019-12-09] MEDS ORDERED: *HR* Midazolam HCl 2 MG/2 ML VIAL ONE (13:16)
[2019-12-09] MEDS: Heparin 25,000UNIT/250ML 1/2NS 25,000 UNIT/250 ML IV.SOLN IVC SCH (14:08)
[2019-12-09] MEDS: Thiamine (B-1) 100 MG, Folic Acid 1 MG, MVI, adult with vitamin K 10 ML in 0.9 % Sodi... IVPB SCH (16:10)
[2019-12-09] MEDS ORDERED: *HR* Rivaroxaban 10 MG TABLET PO SCH (17:00)
[2019-12-09] MEDS ORDERED: 0.9 % Sodium Chloride 500 ML ONE (17:45)
[2019-12-10 05:54] VITALS: BP 102/61
[2019-12-10] MEDS: Tiotropium 18 MCG inhalation IH SCH (07:24)
[2019-12-10] MEDS: amLODIPine 5 MG TABLET PO SCH (07:52)
[2019-12-10] MEDS: lisinopriL 10 MG TABLET PO SCH (07:53)
[2019-12-10] MEDS: Gabapentin 400 MG CAPSULE PO SCH (07:58)
[2019-12-10] MEDS ORDERED: Acetaminophen 325 MG TABLET PO PRN (10:30)
== END 2019-12-10 15:00 ==
LOC: EMEROOARM 16:51 → 3BNU 16:51 → SUATTDRO 12-07 20:27 → 3BNU 12-07 20:40
PROVIDERS: ADMIT Family Medicine; ATTEND Internal Medicine

== ENCOUNTER 2019-12-10 14:57 | Observation (INO) ==
[2019-12-10] MEDS ORDERED: Acetaminophen 325 MG TABLET PO PRN (15:21)
[2019-12-10] MEDS ORDERED: MOM Conc 10 ML UD.LIQ PO PRN (15:21)
[2019-12-10] MEDS ORDERED: *HR* LORazepam 1 MG TABLET PO PRN (15:21)
[2019-12-10] MEDS ORDERED: haloperidoL 5 MG TABLET PO PRN (15:21)
[2019-12-10] MEDS ORDERED: Mag Hydrox/Al Hydrox/Simeth 30 ML UDC PO PRN (15:21)
[2019-12-10] MEDS ORDERED: *HR* LORazepam 2 MG/ML VIAL IM PRN (15:21)
[2019-12-10] MEDS ORDERED: traZODone 50 MG TABLET PO PRN (15:21)
[2019-12-10] MEDS ORDERED: Haloperidol Lactate 5 MG/ML VIAL IM PRN (15:21)
[2019-12-10] MEDS ORDERED: hydrOXYzine pamoate 25 MG CAPSULE PO PRN (15:21)
[2019-12-10] MEDS: *HR* Rivaroxaban 10 MG TABLET PO SCH (17:14)
[2019-12-10] MEDS: Gabapentin 400 MG CAPSULE PO SCH (20:13)
[2019-12-11] MEDS: Gabapentin 400 MG CAPSULE PO SCH ×3 (08:28→20:20)
[2019-12-11] MEDS: lisinopriL 10 MG TABLET PO SCH (08:29)
[2019-12-11] MEDS: amLODIPine 5 MG TABLET PO SCH (08:29)
[2019-12-11] MEDS: Tiotropium 18 MCG inhalation IH SCH (08:30)
[2019-12-11] MEDS: FLUoxetine 20 MG CAPSULE PO SCH (11:43)
[2019-12-11] MEDS: *HR* Rivaroxaban 10 MG TABLET PO SCH (18:16)
[2019-12-12] MEDS: lisinopriL 10 MG TABLET PO SCH (08:10)
[2019-12-12] MEDS: amLODIPine 5 MG TABLET PO SCH (08:10)
[2019-12-12] MEDS: Gabapentin 400 MG CAPSULE PO SCH (08:11)
[2019-12-12] MEDS: FLUoxetine 20 MG CAPSULE PO SCH (08:11)
[2019-12-12] MEDS: Tiotropium 18 MCG inhalation IH SCH (08:12)
[2019-12-12 09:51] VITALS: BP 121/72
== END 2019-12-12 14:00 | disposition home or self-care (01) ==
LOC: 1ANU 14:57 → INTOOBSV 14:57 → 1ANU 20:46
PROVIDERS: ADMIT Psychiatry & Neurology Psychiatry; ATTEND Psychiatry & Neurology Psychiatry